=== PATIENT | female | born 1975 | race Caucasian/White ===

== ENCOUNTER 2017-04-07 11:38 | Emergency (ER) | payer OTHER ==
[2017-04-07 11:59] VITALS: BP 130/77
--- NOTE | 2017-04-07 12:23 | EDM.PDOC ---
ED HPI GENERAL MEDICAL PROBLEM - General Chief Complaint: ENT Problem Stated Complaint: LUMP IN THROAT Time Seen by Provider: 04/07/17 12:18 Source of Information: Reports: Patient History Limitations: Reports: No Limitations - History of Present Illness INITIAL COMMENTS - FREE TEXT/NARRATIVE: 42-year-old female presents to the ED quite anxious. She has a lump in the left side of her throat in the distribution of the left thyroid gland that is grown dramatically over the last 3 weeks. Apparently it's been identified on ultrasound to be a large follicular cyst. Unfortunately all the results are across the street at [facility]. She states this morning the pressure from the lesion was making it difficult to breathe. She is quite anxious in this regard. I will try and find out more information from the clinic across the street as to the etiology. She indicates she has an appointment to see Dr. Gloria the surgeon at [facility] to have the lesion removed or drained tomorrow. Apparently investigations done on her thyroid glands reveal that she is euthyroid. 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 below) (This will cause a tickle in her throat to make her have a nonproductive cough intermittently.) Throat Pain Score (Numeric/FACES): 7 - Related Data Allergies Allergy/AdvReac Type Severity Reaction Status Date / Time Latex, Natural Rubber Allergy Rash Verified 10/01/16 14:35 Penicillins Allergy Cannot Verified 10/01/16 14:35 Remember Home Meds: Home Meds ALPRAZolam [Alprazolam ER] 0.5 mg PO Q8H PRN #5 tab.er.24h 04/07/17 [Rx] Past Medical History HEENT History: Reports: Impaired Vision Other HEENT History: glasses 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: 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 History: Reports: Other (See Below) Other 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 History: left leg reconstructive surgery Neurological History: Reports: Migraines Hematologic History: Reports: Blood Transfusion(s) - Past Surgical History Female Surgical History: Reports: Section Social & Family History - Family History Family Medical History: Noncontributory - Tobacco Use Smoking Status *Q: Never Smoker Years of Tobacco use: 15 Packs/Tins Daily: 0.7 Second Hand Smoke Exposure: No - Caffeine Use Caffeine Use: Reports: Coffee, Energy Drinks, Soda, Tea - Recreational Drug Use Recreational Drug Use: No - Living Situation & Occupation Living situation: Reports: Occupation: Employed ED ROS ENT - Review of Systems Review Of Systems: See Below Constitutional: Denies: Fever, Chills, Malaise, Weakness, Fatigue, Decreased Appetite, Weight Loss HEENT: Reports: Throat Pain, Throat Swelling (Pressure and swelling in the left side of her throat that makes it difficult to breathe when she's lying down and standing. Effexor feel very anxious.) Respiratory: Reports: Shortness of Breath Cardiovascular: Reports: No Symptoms Endocrine: Reports: No Symptoms GI/Abdominal: Reports: No Symptoms : Reports: No Symptoms 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: Reports: No Symptoms Skin: Reports: No Symptoms Neurological: Reports: No Symptoms Psychiatric: Reports: No Symptoms Hematologic/Lymphatic: Reports: No Symptoms Immunologic: Reports: No Symptoms ED EXAM, ENT - Physical Exam Exam: See Below Exam Limited By: No Limitations General Appearance: Alert, WD/WN, Anxious, Moderate Distress, Other (Has an obvious lump when she swallows in the left side of her neck in the distribution of the left hemithyroid.) Eye Exam: Bilateral Eye: Normal Inspection (No proptosis) Head: Atraumatic, Normocephalic Neck: Thyromegaly (There is an enlargement size of a golf ball in the left hemithyroid that is almost substernal until she swallows. It is firm to palpation and mildly tender.). No: Lymphadenopathy (L), Lymphadenopathy (R) Respiratory/Chest: No Respiratory Distress, Lungs Clear, Normal Breath Sounds, No Accessory Muscle Use Cardiovascular: Normal Peripheral Pulses, Regular Rate, Rhythm, No Edema, No Gallop, No Murmur, No Rub GI/Abdominal: Normal Bowel Sounds, Soft, Non-Tender, No Organomegaly Course - Vital Signs Last Recorded V/S: Last Vital Signs Temp 36.6 C 04/07/17 11:54 Pulse 70 04/07/17 11:54 Resp 16 04/07/17 11:54 BP 130/77 04/07/17 11:54 Pulse Ox 98 04/07/17 11:54 - Orders/Labs/Meds Meds: Medications Discontinued Medications Generic Name Dose Route Start Last Admin Trade Name Ricardo PRN Reason Stop Dose Admin Alprazolam 0.5 mg 04/07/17 14:33 04/07/17 14:52 Xanax PO 04/07/17 14:34 0.5 mg NOW ONE Administration Furosemide 40 mg 04/07/17 14:26 04/07/17 14:50 Lasix PO 04/07/17 14:27 40 mg ONETIME ONE Administration Ibuprofen 600 mg 04/07/17 14:29 04/07/17 14:51 Motrin PO 04/07/17 14:30 600 mg ONETIME ONE Administration - Radiology Interpretation Free Text/Narrative:: 42-year-old female presents the ED with a left sided neck mass that she's had gradually enlarging over the last 3-4 weeks. Examination reveals just by observation that she has a golf ball swelling in the left hemithyroid. Bili is been identified by ultrasound to be a large colloid or follicular cyst. Digital with Dr. Gloria tomorrow in [place] to have it surgically removed or drained. She was quite apprehensive today because it's pressing on her voice box making it difficult to breathe and making her apprehensive and anxious. I will try and get the results from [facility] as to the etiology of the lesion on ultrasound. She indicates that testing revealed that she is euthyroid. - Re-Assessments/Exams Free Text/Narrative Re-Assessment/Exam: 04/07/17 14:30: There was not much else I could offer the patient. It she is feeling quite anxious and worried that it is going to compress her optic is an airway. I placed her on alprazolam 0.5 mg every 8 hours when necessary until she can have definitive drainage tomorrow or surgical excision. Her appointment is with Dr. Ramirez tomorrow afternoon at 3:15 central time. Departure - Departure Time of Disposition: 14:33 Disposition: Home, Self-Care 01 Condition: Fair Clinical Impression: Benign thyroid cyst - Discharge Information Prescriptions: ALPRAZolam [Alprazolam ER] 0.5 mg PO Q8H PRN #5 tab.er.24h PRN Reason: Throat pressure Instructions: Thyroid Nodule Referrals: PCP,None [Primary Care Provider] - Forms: ED Department Discharge Additional Instructions: Evaluation in the emergency room today in regards to throat pressure being exerted on the airway and the food pipe from a very large thyroid cyst. Ultrasound reports a large colloid cyst on the left side that is progressed quite substantially in size over the last 3-4 weeks. You're scheduled for surgical management tomorrow and I suspect it will be drained percutaneously which means a needle be stuck into it and drain it off. I've given her Lasix 40 mg orally in the hopes of reducing some of the size of the swelling in the short interim. May use alprazolam 0.5 mg every 8 hours as needed to relieve some of the pressure in the throat as well. Unfortunately nothing really is going to take it away completely until it is drained or surgically removed. Travel to [place] tomorrow as planned.
[2017-04-07] MEDS ORDERED: Furosemide 40 MG Tab PO ONE (14:26)
[2017-04-07] MEDS ORDERED: Ibuprofen 600 MG Tab PO ONE (14:29)
[2017-04-07] MEDS ORDERED: ALPRAZolam 0.5 MG Tab PO ONE (14:33)
== END 2017-04-07 14:55 | disposition home or self-care (01) ==
LOC: JD.ED 11:38
DX: E04.1 Nontoxic single thyroid nodule (principal); Z88.0 Allergy status to penicillin; Z91.040 Latex allergy status
CPT/HCPCS: 99283; A9270

== ENCOUNTER 2017-04-11 11:57 | Emergency (ER) | payer OTHER ==
[2017-04-11 12:10] VITALS: BP 132/82
[2017-04-11] MEDS ORDERED: LORazepam 2 MG/ML MDV IVPUSH ONE (13:01)
[2017-04-11] MEDS ORDERED: Sodium Chloride 0.9% 10 ML Syringe FLUSH PRN ×2 (13:02→13:24)
[2017-04-11] MEDS ORDERED: Iopamidol 612 MG/ML 100 ML Bottle IVPUSH ONE (13:24)
--- NOTE | 2017-04-11 15:33 | EDM.PDOC ---
ED HPI GENERAL MEDICAL PROBLEM - General Chief Complaint: ENT Problem Stated Complaint: THROAT PAIN Time Seen by Provider: 04/11/17 12:50 Source of Information: Reports: Patient, Old Records (recent ER visit) History Limitations: Reports: No Limitations - History of Present Illness INITIAL COMMENTS - FREE TEXT/NARRATIVE: 42 year old female presents for evaluation and treatment of a neck mass and painful neck. Patient was seen in the ER on 04-07-17 for the same complaint. She was schedule to have a thyroid cyst drained in [place] the following day. She was reassured and prescribed some xanax. Patient had the cyst drained with Dr. Moreno in [place] on 04-08-17. She reports immediate relief of her symptoms. She reports yesterday her symptoms returned. Current symptoms include: neck pain , throat pain, dysphagia, odynophargia, difficulty breathing and horseness of voice. Patient reports yesterday she developed redness to her neck and swelling to her face. These symptoms have since resolved. Patient reports she has felt warm but has not taken her temp. Denies any nausea or vomiting. Reports feeling lightheaded. Left Throat Pain Score (Numeric/FACES): 6 - Related Data Allergies Allergy/AdvReac Type Severity Reaction Status Date / Time Latex, Natural Rubber Allergy Rash Verified 04/11/17 12:10 Penicillins Allergy Cannot Verified 04/11/17 12:10 Remember Home Meds: Home Meds . 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 History: Reports: Other (See Below) Other 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 History: left leg reconstructive surgery Neurological History: Reports: Migraines Hematologic History: Reports: Blood Transfusion(s) - Past Surgical History Female Surgical History: Reports: Section Social & Family History - Family History Family Medical History: Noncontributory - Tobacco Use Smoking Status *Q: Current Every Day Smoker Years of Tobacco use: 25 Packs/Tins Daily: 0.5 Second Hand Smoke Exposure: No - Caffeine Use Caffeine Use: Reports: None - Recreational Drug Use Recreational Drug Use: No - Living Situation & Occupation Living situation: Reports: Occupation: Employed ED ROS ENT - Review of Systems Review Of Systems: See Below Constitutional: Denies: Fever (reports feeling warm) HEENT: Reports: Other (facial swelling) Respiratory: Reports: Shortness of Breath Cardiovascular: Reports: Lightheadedness GI/Abdominal: Denies: Nausea, Vomiting 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: Reports: Neck Pain (reports dysphagia, reports odynophagia, reports a lump to the left thyroid where the previous cyst had been, reports a horse voice) Skin: Reports: Erythema (to the nect ) ED EXAM, ENT - Physical Exam Exam: See Below Exam Limited By: No Limitations General Appearance: Alert, WD/WN, No Apparent Distress, Anxious Ears: Normal External Exam Nose: Normal Inspection Mouth/Throat: Normal Inspection, Normal Gums, Normal Lips, Normal Oropharynx, Normal Teeth Head: Atraumatic, Normocephalic Neck: Normal Inspection, Supple, Other (pea sized lump to the left thyroid patient reports with palpation of the lump she can not breath) Respiratory/Chest: No Respiratory Distress, Lungs Clear, Normal Breath Sounds Cardiovascular: Normal Peripheral Pulses, Regular Rate, Rhythm Neurological: Alert, Oriented Psychiatric: Anxious Skin: Warm, Dry, Normal Color. No: Erythema, Increased Warmth Course - Vital Signs Last Recorded V/S: Last Vital Signs Temp 36.4 C 04/11/17 12:05 Pulse 71 04/11/17 12:05 Resp 13 04/11/17 12:05 BP 132/82 04/11/17 12:05 Pulse Ox 100 04/11/17 12:05 - Orders/Labs/Meds Labs: Laboratory Tests 04/11/17 04/11/17 Range/Units 13:18 13:18 WBC 8.67 (3.98-10.04) K/mm3 RBC 4.45 (3.98-5.22) M/mm3 Hgb 13.9 (11.2-15.7) gm/L Hct 41.7 (34.1-44.9) % MCV 93.7 (79.4-94.8) fl MCH 31.2 (25.6-32.2) pg MCHC 33.3 (32.2-35.5) g/dl RDW Std Deviation 42.1 (36.4-46.3) fL Plt Count 263 (182-369) K/mm3 MPV 9.9 (9.4-12.3) fl Neutrophils % (Manual) 66 H (40-60) % Band Neutrophils % 0 (0-10) % Lymphocytes % (Manual) 32 (20-40) % Atypical Lymphs % 0 % Monocytes % (Manual) 2 (2-10) % Eosinophils % (Manual) 0 L (0.7-5.8) % Basophils % (Manual) 0 L (0.1-1.2) Platelet Estimate Adequate RBC Morph Comment Normal Sodium 140 (136-145) mEq/L Potassium 3.7 (3.5-5.1) mEq/L Chloride 104 (98-107) mEq/L Carbon Dioxide 27 (21-32) mEq/L Anion Gap 12.7 (5-15) BUN 10 (7-18) mg/dL Creatinine 0.9 (0.55-1.02) mg/dL Est Cr Clr Drug Dosing TNP Estimated GFR (MDRD) > 60 (>60) mL/min BUN/Creatinine Ratio 11.1 L (14-18) Glucose 98 (74-106) mg/dL Calcium 9.3 (8.5-10.1) mg/dL Total Bilirubin 0.5 (0.2-1.0) mg/dL AST 18 (15-37) U/L ALT 18 (14-59) U/L Alkaline Phosphatase 70 (46-116) U/L C-Reactive Protein 0.9 (<1.0) mg/dL Total Protein 8.0 (6.4-8.2) g/dl Albumin 4.2 (3.4-5.0) g/dl Globulin 3.8 gm/dL Albumin/Globulin Ratio 1.1 (1-2) Meds: Medications Discontinued Medications Generic Name Dose Route Start Last Admin Trade Name Freq PRN Reason Stop Dose Admin Iopamidol 80 ml 04/11/17 13:24 04/11/17 13:49 Isovue-300 (61%) IVPUSH 04/11/17 13:25 80 ml ONETIME ONE Administration Lorazepam 1 mg 04/11/17 13:01 04/11/17 13:20 Ativan IVPUSH 04/11/17 13:02 1 mg ONETIME ONE Administration Sodium Chloride 10 ml 04/11/17 13:02 04/11/17 13:23 Saline Flush FLUSH 10 ml ASDIRECTED PRN Administration Keep Vein Open Sodium Chloride 10 ml 04/11/17 13:24 04/11/17 13:49 Saline Flush FLUSH 10 ml ONETIME PRN Administration IV FLUSH - Radiology Interpretation Free Text/Narrative:: CT of the neck with IV contrast impression per vrad: Resolution of the previously noted large left thyroid cyst. 1.9 x 1.4 cm hypodense nodular focus in the inferior left thyroid lobe which probably represents a remnant of the former cyst. Otherwise unremarkable soft tissue neck CT. No impingement upon the airway or esophagus. - Re-Assessments/Exams Free Text/Narrative Re-Assessment/Exam: 04/11/17 15:25 The patient reports she is extremely claustrophobic and did not think she would be able to get a CT. Given her symptoms, this is the imaging study we need to rule out a mass. I also do not think she could tolerate an ultrasound as she could barely tolerate light palpation of the cyst. 1 mg IV ativan was ordered. Labs returned wbc 8.67 with no bands, hgb is 13.9 and plts are 263 crp is within normal limits at 0.9 sodium is 140, potassium is 3.7 and chloride is 104. anion gap is 12.7. gluclose is 98 I discussed the case with Dr. Harris. He did not feel any further intervention was needed at this point based on a negative CT and unremarkable physical exam. I discussed the labs and cT with the patient. She reports no improvement of her symptoms with the ativan. She is upset with the news that her labs and CT are normal. Despite reporting not being able to breath or swallow she is swallowing her secretions and her vitals have remained normal throughout her stay. I encouraged her to contact her surgeon on Thursday to review her symptoms. At this point there is no abscess or reemergence of the cyst to indicate admission or transfer. Discharge instructions as documented. Departure - Departure Time of Disposition: 15:29 Disposition: Home, Self-Care 01 Condition: Good Clinical Impression: Benign thyroid cyst, History of thyroid cyst - Discharge Information Referrals: PCP,None [Primary Care Provider] - Carin Gloria MD [Ordering Only Provider] - Forms: ED Department Discharge Additional Instructions: Follow-up with your surgeon on Thursday. I recommend you call them for your test results and let them know that your of your symptoms. May take [id number] Tylenol or Motrin as needed for pain. Please return to the ER if your symptoms change or worsen.
--- NOTE | 2017-04-12 15:10 | CT ---
CT neck Technique: Multiple axial sections were obtained from above the external auditory canals inferiorly to the lung apices. Intravenous contrast was utilized. Findings: Visualized lung apices are clear. Small low density lesion is seen within the left lobe of the thyroid gland believed to be incidental. Parotid and submandibular salivary glands are felt to be within normal limits. Paranasal sinuses are clear. No adenopathy is seen within the neck. No other neck mass is identified. Parapharyngeal soft tissues appear symmetric between right and left sides. Epiglottis is within normal limits. Prevertebral soft tissues are normal. Very slight degenerative change is seen within the cervical spine. Impression: 1. Findings which are felt to be incidental as described above. Nothing acute is identified on CT study of the neck. Diagnostic code #2 I agree with preliminary report issued by [email or web address] ([facility] report finalized on 04/11/17, 4:02 PM Central Time)
== END 2017-04-11 15:40 | disposition home or self-care (01) ==
LOC: JD.ED 11:57
DX: E04.1 Nontoxic single thyroid nodule (principal); F17.210 Nicotine dependence, cigarettes, uncomplicated; Z88.0 Allergy status to penicillin; Z91.040 Latex allergy status
CPT/HCPCS: 36415; 70491; 80053; 85025; 86140; 96374; 99284; J2060; J7050; Q9967; 99283

== ENCOUNTER 2017-06-04 13:55 | Emergency (ER) | payer OTHER ==
[2017-06-04] MEDS ORDERED: diphenhydrAMINE 50 MG/ML SDV IM ONE (15:02)
[2017-06-04] MEDS ORDERED: Ketorolac 60 MG/2 ML SDV IM ONE (15:02)
[2017-06-04] MEDS ORDERED: Metoclopramide 10 MG/2 ML SDV IM ONE (15:02)
--- NOTE | 2017-06-04 15:03 | EDM.PDOC ---
ED HPI GENERAL MEDICAL PROBLEM - General Chief Complaint: Headache Stated Complaint: Headache Time Seen by Provider: 06/04/17 14:30 Source of Information: Reports: Patient, RN Notes Reviewed History Limitations: Reports: No Limitations - History of Present Illness INITIAL COMMENTS - FREE TEXT/NARRATIVE: 42 year old female presents with headache. Patient has longstanding history of headaches, but they have been increasing in severity and frequency since thyroidectomy 04/21/17. This headache began yesterday afternoon, with light/ noise sensitivity, nausea, vomiting x 2. Pain is in frontal region rated 10/10 on pain scale. She reports intermittent ringing of ears and blurred vision. Ibuprofen and topical cold/heat do not provide relief from symptoms. Lying still and manual pressure to bridge of nose provide minimal symptom improvement. Thyroid levels were checked on 05/21/[address] Gloria's office and levothyroxine dose was increased from 112mcg to 150mcg at that time. The patient feels that her thyroid medication is causing her headaches. 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; Dramamine Headache Pain Score (Numeric/FACES): 10 - Related Data Allergies Allergy/AdvReac Type Severity Reaction Status Date / Time hydromorphone [From Dilaudid] Allergy Vomiting Verified 06/04/17 14:17 Latex, Natural Rubber Allergy Rash Verified 04/11/17 12:10 Penicillins Allergy Cannot Verified 04/11/17 12:10 Remember Home Meds: Home Meds Acetaminophen/Butalbital/Caff [Fioricet 325-50-40 MG] 1 tab PO TID PRN #15 tablet 06/04/17 [Rx] Levothyroxine 150 mcg PO ACBREAKFAST 06/04/17 [History] Past Medical History HEENT History: Reports: Impaired Vision Other 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: 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 History: Reports: Other (See Below) Other 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 History: left leg reconstructive surgery Neurological History: Reports: Migraines Hematologic History: Reports: Blood Transfusion(s) - Past Surgical History Female Surgical History: Reports: Section Social & Family History - Family History Family Medical History: Noncontributory - Tobacco Use Smoking Status *Q: Current Every Day Smoker Years of Tobacco use: 25 Packs/Tins Daily: 0.5 Second Hand Smoke Exposure: No - Caffeine Use Caffeine Use: Reports: None - Recreational Drug Use Recreational Drug Use: No - Living Situation & Occupation Living situation: Reports: Occupation: Employed ED ROS GENERAL - Review of Systems Review Of Systems: See Below Constitutional: Reports: Night Sweats. Denies: Fever, Chills Respiratory: Reports: No Symptoms. Denies: Hemoptysis Cardiovascular: Reports: No Symptoms. Denies: Chest Pain GI/Abdominal: Reports: Nausea, Vomiting. Denies: Abdominal Pain, Constipation, Diarrhea Neurological: Reports: Headache. Denies: Confusion, Numbness, Tingling, Trouble Speaking, Difficulty Walking - Physical Exam Exam: See Below Exam Limited By: No Limitations General Appearance: Alert, WD/WN, Moderate Distress Eye Exam: Bilateral Eye: EOMI, PERRL Head Exam: Atraumatic, Normocephalic Respiratory/Chest: No Respiratory Distress, Lungs Clear, Normal Breath Sounds Cardiovascular: Regular Rate, Rhythm Neuro Exam (Abbreviated): Alert, Oriented, Normal Cognition, Normal Gait, No Motor/Sensory Deficits, Other (cerebellar testing intact) Skin Exam: Warm, Dry, Intact Course - Vital Signs Last Recorded V/S: Last Vital Signs Temp 97.7 F 06/04/17 14:17 Pulse 82 06/04/17 14:17 Resp 18 06/04/17 14:17 BP 130/105 H 06/04/17 14:17 Pulse Ox 99 06/04/17 14:17 - Orders/Labs/Meds Orders: Active Orders 24 hr Category Date Time Status Peripheral IV Care [RC] . DIRECTED Care 06/04/17 16:38 Active Sodium Chloride 0.9% [Saline Flush] Med 06/04/17 16:38 Active 10 ml FLUSH ASDIRECTED PRN Peripheral IV Insertion Adult [OM.PC] Stat Oth 06/04/17 16:38 Ordered Medication Orders Sodium Chloride (Saline Flush) 10 ml FLUSH ASDIRECTED PRN PRN Reason: Keep Vein Open Last Admin: 06/04/17 16:45 Dose: 10 ml Meds: Medications Generic Name Dose Route Start Last Admin Trade Name Freq PRN Reason Stop Dose Admin Sodium Chloride 10 ml 06/04/17 16:38 06/04/17 16:45 Saline Flush FLUSH 10 ml ASDIRECTED PRN Administration Keep Vein Open Discontinued Medications Generic Name Dose Route Start Last Admin Trade Name Freq PRN Reason Stop Dose Admin Diphenhydramine HCl 50 mg 06/04/17 15:02 06/04/17 15:19 Benadryl IM 06/04/17 15:03 50 mg ONETIME ONE Administration Fentanyl 50 mcg 06/04/17 16:38 06/04/17 16:51 Sublimaze IVPUSH 06/04/17 16:39 50 mcg ONETIME ONE Administration Fentanyl 50 mcg 06/04/17 17:46 Sublimaze IVPUSH 06/04/17 17:47 ONETIME ONE Sodium Chloride 1,000 mls @ 999 mls/hr 06/04/17 16:38 06/04/17 16:50 Normal Saline IV 06/04/17 17:38 999 mls/hr ONETIME ONE Administration Ketorolac Tromethamine 60 mg 06/04/17 15:02 06/04/17 15:18 Toradol IM 06/04/17 15:03 60 mg ONETIME ONE Administration Metoclopramide HCl 5 mg 06/04/17 15:02 06/04/17 15:18 Reglan IM 06/04/17 15:03 5 mg ONETIME ONE Administration - Re-Assessments/Exams Free Text/Narrative Re-Assessment/Exam: Initial treatment included Toradol 60mg, Benadryl 50mg, Reglan 5mg IM. Her pain improved from a 10/10 to 8/10. Her headaches seem to be associated to changes in her thyroid medication. Discussed with Dr. Castro. IV was placed. She was given a 1 liter NS bolus and Fentanyl. She had significant improvement in pain. 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 She was also encouraged to establish with a PCP in our clinic. Small Rx provided for Fioricet. Educated on return precautions. Discharge instructions as documented. Departure - Departure Time of Disposition: 17:46 Disposition: Home, Self-Care 01 Condition: Good Clinical Impression: Migraine - Discharge Information Prescriptions: Acetaminophen/Butalbital/Caff [Fioricet 325-50-40 MG] 1 tab PO TID PRN #15 tablet PRN Reason: Headache Referrals: PCP,Not In Area [Primary Care Provider] - Forms: ED Department Discharge Additional Instructions: Continue over the counter pain relieves as needed. Recommend Ibuprofen or Aleve. Fioricet 1 tab up to 3 times a day as needed for headache Fioricet has 325mg of Tylenol per tab. 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 Call [phone] to schedule with one of our providers Return to ER with new or worsening symptoms. - My Orders Last 24 Hours: My Active Orders 06/04/17 16:38 Peripheral IV Care [RC] . DIRECTED Sodium Chloride 0.9% [Saline Flush] 10 ml FLUSH ASDIRECTED PRN Peripheral IV Insertion Adult [OM.PC] Stat - Assessment/Plan Last 24 Hours: My Active Orders 06/04/17 16:38 Peripheral IV Care [RC] . DIRECTED Sodium Chloride 0.9% [Saline Flush] 10 ml FLUSH ASDIRECTED PRN Peripheral IV Insertion Adult [OM.PC] Stat
[2017-06-04] MEDS ORDERED: Sodium Chloride 0.9% 1,000 ML IV ONE (16:38)
[2017-06-04] MEDS ORDERED: Sodium Chloride 0.9% 10 ML Syringe FLUSH PRN (16:38)
[2017-06-04] MEDS ORDERED: fentaNYL 100 MCG/2 ML SDV IVPUSH ONE ×2 (16:38→17:46)
[2017-06-04 18:06] VITALS: BP 144/79
== END 2017-06-04 18:04 | disposition home or self-care (01) ==
LOC: JD.ED 13:55
DX: G43.909 Migraine, unspecified, not intractable, without status migrainosus (principal); F17.210 Nicotine dependence, cigarettes, uncomplicated; Z88.5 Allergy status to narcotic agent; Z91.040 Latex allergy status; Z88.0 Allergy status to penicillin
CPT/HCPCS: 96361; 96372; 96374; 96376; 99283; J1200; J1885; J2765; J3010; J7040; J7050; 99285

== ENCOUNTER 2017-06-09 16:47 | Emergency (ER) | payer OTHER ==
[2017-06-09 16:58] VITALS: BP 152/90
[2017-06-09] MEDS ORDERED: Sodium Chloride 0.9% 10 ML Syringe FLUSH PRN (17:10)
[2017-06-09] MEDS ORDERED: diphenhydrAMINE 50 MG/ML SDV IVPUSH ONE (17:11)
[2017-06-09] MEDS ORDERED: Prochlorperazine 10 MG/2 ML SDV IVPUSH ONE (17:11)
[2017-06-09] MEDS ORDERED: Ketorolac 30 MG/ML SDV IVPUSH ONE (17:11)
[2017-06-09] MEDS ORDERED: Dextrose 5%-0.45% NaCl 1,000 ML IV SCH (17:15)
--- NOTE | 2017-06-09 17:19 | EDM.PDOC ---
ED HPI GENERAL MEDICAL PROBLEM - General Chief Complaint: Headache Stated Complaint: HEADACHE Time Seen by Provider: 06/09/17 16:56 Source of Information: Reports: Patient History Limitations: Reports: No Limitations - History of Present Illness INITIAL COMMENTS - FREE TEXT/NARRATIVE: The patient presents with a severe headache. She has a history of headaches but this is much worse. She recently had her thyroid removed by Dr Gloria at [facility] in [place]. She is now on synthroid. They increased her dose a few days ago. She has pain behind both eyes. She has nausea but no vomiting. She has chills and night sweats. She denies numbness or weakness. She has some blurred vision with it. She has no cough, congestion, runny nose, or abdominal pain. She was seen night here and the pain was better but still there. Today after she woke up it was much worse. Onset: Gradual Duration: Day(s): Location: Reports: Head Quality: Reports: Sharp Severity: Severe Improves with: Reports: None Worsens with: Reports: None Associated Symptoms: Reports: Fever/Chills, Headaches, Nausea/Vomiting. Denies : Confusion, Chest Pain, Cough, Shortness of Breath Headache Pain Score (Numeric/FACES): 10 - Related Data Allergies Allergy/AdvReac Type Severity Reaction Status Date / Time hydromorphone [From Dilaudid] Allergy Vomiting Verified 06/09/17 16:58 Latex, Natural Rubber Allergy Rash Verified 06/09/17 16:58 Penicillins Allergy Cannot Verified 06/09/17 16:58 Remember Home Meds: Home Meds Acetaminophen/Butalbital/Caff [Fioricet 325-50-40 MG] 1 tab PO TID PRN #15 tablet 06/04/17 [Rx] Levothyroxine 150 mcg PO ACBREAKFAST 06/04/17 [History] Metoclopramide HCl [Reglan] 10 mg PO Q6HR PRN #30 tablet 06/09/17 [Rx] oxyCODONE HCl/Acetaminophen [Percocet 5-325 mg Tablet] 1 - 2 each PO Q6HR PRN # 20 tablet 06/09/17 [Rx] Past Medical History HEENT History: Reports: Impaired Vision Other HEENT History: glasses Genitourinary History: Reports: None TOURIST ADVISER History: Reports: 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 History: Reports: Other (See Below) Other 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 History: left leg reconstructive surgery Neurological History: Reports: Migraines Endocrine/Metabolic History: Reports: Other (See Below) Other Endocrine/Metabolic History: 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 problems Hematologic History: Reports: Blood Transfusion(s) - Past Surgical History Female Surgical History: Reports: Section Endocrine Surgical History: Reports: Thyroidectomy Social & Family History - Family History Family Medical History: Noncontributory - Tobacco Use Smoking Status *Q: Current Every Day Smoker Years of Tobacco use: 23 Packs/Tins Daily: 0.5 Second Hand Smoke Exposure: No - Caffeine Use Caffeine Use: Reports: Coffee, Soda - Recreational Drug Use Recreational Drug Use: No - Living Situation & Occupation Living situation: Reports: Occupation: Employed ED ROS GENERAL - Review of Systems Review Of Systems: See Below Constitutional: Reports: Chills. Denies: Fever HEENT: Reports: No Symptoms Respiratory: Reports: No Symptoms Cardiovascular: Reports: No Symptoms Endocrine: Reports: No Symptoms GI/Abdominal: Reports: Nausea. Denies: Abdominal Pain, Vomiting : Reports: No Symptoms 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: Reports: No Symptoms Skin: Reports: No Symptoms Neurological: Reports: No Symptoms - Physical Exam Exam: See Below Exam Limited By: No Limitations General Appearance: Alert, No Apparent Distress Ears: Normal External Exam, Normal Canal, Normal TMs Nose: Normal Inspection Head Exam: Atraumatic, Normocephalic Neck: Normal Inspection, Supple, Non-Tender Respiratory/Chest: No Respiratory Distress, Lungs Clear, Normal Breath Sounds Cardiovascular: Regular Rate, Rhythm, No Edema, No Murmur GI/Abdominal: Soft, Non-Tender, No Organomegaly, No Mass Neuro Exam (Abbreviated): Alert, Oriented, No Motor/Sensory Deficits Course - Vital Signs Last Recorded V/S: Last Vital Signs Temp 97.8 F 06/09/17 16:55 Pulse 72 06/09/17 16:55 Resp 16 06/09/17 16:55 BP 152/90 H 06/09/17 16:55 Pulse Ox 98 06/09/17 16:55 - Orders/Labs/Meds Orders: Active Orders 24 hr Category Date Time Status Peripheral IV Care [RC] . DIRECTED Care 06/09/17 17:10 Active SEDIMENTATION RATE AUTO [HEME] Stat Lab 06/09/17 17:13 Ordered Dextrose 5%-0.45% NaCl [Dextrose 5%-1/2 NS] 1,000 ml Med 06/09/17 17:15 Active IV ASDIRECTED Sodium Chloride 0.9% [Saline Flush] Med 06/09/17 17:10 Active 10 ml FLUSH ASDIRECTED PRN ED Antiemetic Medication Reflex [OM.PC] Stat Oth 06/09/17 17:11 Ordered Peripheral IV Insertion Adult [OM.PC] Stat Ot 06/09/17 17:10 Ordered Medication Orders Dextrose/Sodium Chloride (Dextrose 5%-1/2 Ns) 1,000 mls @ 500 mls/hr IV ASDIRECTED GLORIA Last Admin: 06/09/17 17:29 Dose: 500 mls/hr Sodium Chloride (Saline Flush) 10 ml FLUSH ASDIRECTED PRN PRN Reason: Keep Vein Open Last Admin: 06/09/17 17:28 Dose: 10 ml Labs: Laboratory Tests 06/09/17 06/09/17 06/09/17 Range/Units 17:23 17:23 17:23 WBC 8.71 (3.98-10.04) K/mm3 RBC 4.18 (3.98-5.22) M/mm3 Hgb 12.5 (11.2-15.7) gm/L Hct 39.0 (34.1-44.9) % MCV 93.3 (79.4-94.8) fl MCH 29.9 (25.6-32.2) pg MCHC 32.1 L (32.2-35.5) g/dl RDW Std Deviation 42.0 (36.4-46.3) fL Plt Count 232 (182-369) K/mm3 MPV 10.1 (9.4-12.3) fl Neut % (Auto) 53.6 (34.0-71.1) % Lymph % (Auto) 36.1 (19.3-51.7) % Crawford % (Auto) 7.9 (4.7-12.5) % Eos % (Auto) 1.6 (0.7-5.8) Baso % (Auto) 0.7 (0.1-1.2) % Neut # (Auto) 4.67 (1.56-6.13) K/mm3 Lymph # (Auto) 3.14 (1.18-3.74) K/mm3 Crawford # (Auto) 0.69 H (0.24-0.36) K/mm3 Eos # (Auto) 0.14 (0.04-0.36) K/mm3 Baso # (Auto) 0.06 (0.01-0.08) K/mm3 Sodium 143 (136-145) mEq/L Potassium 3.4 L (3.5-5.1) mEq/L Chloride 106 (98-107) mEq/L Carbon Dioxide 27 (21-32) mEq/L Anion Gap 13.4 (5-15) BUN 9 (7-18) mg/dL Creatinine 0.8 (0.55-1.02) mg/dL Est Cr Clr Drug Dosing TNP Estimated GFR (MDRD) > 60 (>60) mL/min BUN/Creatinine Ratio 11.3 L (14-18) Glucose 104 (74-106) mg/dL Calcium 8.9 (8.5-10.1) mg/dL Total Bilirubin 0.2 (0.2-1.0) mg/dL AST 14 L (15-37) U/L ALT 15 (14-59) U/L Alkaline Phosphatase 63 (46-116) U/L C-Reactive Protein < 0.2 (<1.0) mg/dL Total Protein 6.9 (6.4-8.2) g/dl Albumin 3.8 (3.4-5.0) g/dl Globulin 3.1 gm/dL Albumin/Globulin Ratio 1.2 (1-2) TSH 3rd Generation 1.797 (0.358-3.74) uIU/mL HCG, Qual Negative (NEGATIVE) Meds: Medications Generic Name Dose Route Start Last Admin Trade Name Freq PRN Reason Stop Dose Admin Dextrose/Sodium Chloride 1,000 mls @ 500 mls/hr 06/09/17 17:15 06/09/17 17:29 Dextrose 5%-1/2 Ns IV 500 mls/hr ASDIRECTED GLORIA Administration Sodium Chloride 10 ml 06/09/17 17:10 06/09/17 17:28 Saline Flush FLUSH 10 ml ASDIRECTED PRN Administration Keep Vein Open Discontinued Medications Generic Name Dose Route Start Last Admin Trade Name Freq PRN Reason Stop Dose Admin Diphenhydramine HCl 50 mg 06/09/17 17:11 06/09/17 17:26 Benadryl IVPUSH 06/09/17 17:12 50 mg ONETIME ONE Administration Ketorolac Tromethamine 30 mg 06/09/17 17:11 06/09/17 17:28 Toradol IVPUSH 06/09/17 17:12 30 mg ONETIME ONE Administration Prochlorperazine Edisylate 10 mg 06/09/17 17:11 06/09/17 17:22 Compazine IVPUSH 06/09/17 17:12 10 mg ONETIME ONE Administration - Re-Assessments/Exams Free Text/Narrative Re-Assessment/Exam: 06/09/17 17:20 I ordered an IV D5 1/2 NS at 500mL/hr, compazine 10mg IV, toradol 30mg IV, benadryl 50mg IV, CT of her head, and labs. 06/09/17 18:[address] of her head looks good. Her CBC and CMP look good. Her HCG is negative. Her TSH is in a normal range. Departure - Departure Time of Disposition: 18:50 Disposition: Home, Self-Care 01 Condition: Good Clinical Impression: Migraine - Discharge Information Prescriptions: Metoclopramide HCl [Reglan] 10 mg PO Q6HR PRN #30 tablet PRN Reason: Nausea oxyCODONE HCl/Acetaminophen [Percocet 5-325 mg Tablet] 1 - 2 each PO Q6HR PRN # 20 tablet PRN Reason: Pain Referrals: Meg Freed, LAW ENFORCEMENT OFFICER [Primary Care Provider] - 3 Days Forms: ED Department Discharge Additional Instructions: Take the percocet and reglan as needed for pain. Follow up with Meg Freed in the next 3 days. Please return if you are not better. - My Orders Last 24 Hours: My Active Orders 06/09/17 17:10 Peripheral IV Care [RC] . DIRECTED Sodium Chloride 0.9% [Saline Flush] 10 ml FLUSH ASDIRECTED PRN Peripheral IV Insertion Adult [OM.PC] Stat 06/09/17 17:11 ED Antiemetic Medication Reflex [OM.PC] Stat 06/09/17 17:13 SEDIMENTATION RATE AUTO [HEME] Stat 06/09/17 17:15 Dextrose 5%-0.45% NaCl [Dextrose 5%-1/2 NS] 1,000 ml IV ASDIRECTED - Assessment/Plan Last 24 Hours: My Active Orders 06/09/17 17:10 Peripheral IV Care [RC] . DIRECTED Sodium Chloride 0.9% [Saline Flush] 10 ml FLUSH ASDIRECTED PRN Peripheral IV Insertion Adult [OM.PC] Stat 06/09/17 17:11 ED Antiemetic Medication Reflex [OM.PC] Stat 06/09/17 17:13 SEDIMENTATION RATE AUTO [HEME] Stat 06/09/17 17:15 Dextrose 5%-0.45% NaCl [Dextrose 5%-1/2 NS] 1,000 ml IV ASDIRECTED
--- NOTE | 2017-06-09 18:13 | CT ---
Head CT Technique: Multiple axial sections through the brain were obtained. Intravenous contrast was not utilized. Comparison: No previous intracranial imaging is available. Findings: Ventricles along with basal cisterns and sulci over the convexities are within normal limits for the patient's age. No abnormal parenchymal densities are seen. No evidence of intracranial hemorrhage. No midline shift or mass effect is seen. Bone window settings were reviewed which shows no discrete calvarial abnormality. Visualized sinuses are clear. Impression: 1. No abnormality is identified on noncontrast head CT study. Diagnostic code #1
== END 2017-06-09 18:54 | disposition home or self-care (01) ==
LOC: JD.ED 16:47
DX: G43.909 Migraine, unspecified, not intractable, without status migrainosus (principal); F17.210 Nicotine dependence, cigarettes, uncomplicated; E89.0 Postprocedural hypothyroidism; Z88.0 Allergy status to penicillin; Z88.5 Allergy status to narcotic agent; Z91.040 Latex allergy status
CPT/HCPCS: 36415; 70450; 80053; 84443; 84703; 85025; 85652; 86140; 96361; 96374; 96375; 99284; J0780; J1200; J1885; J7042; J7050

== ENCOUNTER 2018-07-05 06:12 | Inpatient (IN) | payer OTHER ==
[2018-07-05] MEDS ORDERED: Ondansetron 4 MG/2 ML SDV IVPUSH ONE (06:50)
[2018-07-05] MEDS ORDERED: Sodium Chloride 0.9% 1,000 ML IV STA (06:50)
[2018-07-05] MEDS ORDERED: Sodium Chloride 0.9% 10 ML Syringe FLUSH PRN (06:50)
[2018-07-05] MEDS ORDERED: fentaNYL 100 MCG/2 ML SDV IVPUSH ONE ×3 (06:52→11:23)
--- NOTE | 2018-07-05 06:58 | EDM.PDOC ---
<NoeinoSergey key - Last Filed: 07/05/18 06:52> ED HPI GENERAL MEDICAL PROBLEM - General Chief Complaint: Abdominal Pain Stated Complaint: POST SURGICAL FEVER AND PAIN Time Seen by Provider: 07/05/18 06:38 Source of Information: Reports: Patient History Limitations: Reports: No Limitations - History of Present Illness INITIAL COMMENTS - FREE TEXT/NARRATIVE: The patient presents with lower abdominal pain, nausea and fever. She had a hysterectomy, salpingooophorectomy at [facility] on June 23. She has 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. She also said they had to remove part of her vagina. She said she was doing good and on her chet were removed and after that her cat jumped on her abdomen. She developed more pain since the. She also has fever, chills and nausea. She has no dysuria but she says when her bladder is full she feels pressure. She has no cough, chest pain or shortness of breath. She has a headache and body aches. Onset: Gradual Duration: Day(s): Location: Reports: Abdomen Quality: Reports: Sharp Severity: Moderate Improves with: Reports: None Worsens with: Reports: None Context: Reports: Other (Surgery on the ) Associated Symptoms: Reports: Fever/Chills, Headaches, Nausea/Vomiting. Denies : Chest Pain, Cough, Shortness of Breath Abdominal Pain Score (Numeric/FACES): 10 - Related Data Allergies Allergy/AdvReac Type Severity Reaction Status Date / Time hydromorphone [From Dilaudid] Allergy Vomiting Verified 06/09/17 16:58 Latex, Natural Rubber Allergy Rash Verified 06/09/17 16:58 Penicillins Allergy Cannot Verified 07/05/18 06:22 Remember Home Meds: Home Meds Levothyroxine 150 mcg PO ACBREAKFAST 06/04/17 [History] Docusate Sodium [Colace] 100 mg PO DAILY 07/05/18 [History] Past Medical History HEENT History: Reports: Impaired Vision Other HEENT History: glasses Genitourinary History: Reports: None [facility] History: Reports: 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 History: Reports: Other (See Below) Other 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 History: left leg reconstructive surgery Neurological History: Reports: Migraines Endocrine/Metabolic History: Reports: Hyperthyroidism, Other (See Below) Other Endocrine/Metabolic History: 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 problems Hematologic History: Reports: Blood Transfusion(s) - Past Surgical History Female Surgical History: Reports: Section, Hysterectomy Other Female Surgeries/Procedures: radical hyst for ovarial cancer Endocrine Surgical History: Reports: Thyroidectomy Social & Family History - Family History Family Medical History: Noncontributory - Tobacco Use Smoking Status *Q: Unknown Ever Smoked - Caffeine Use Caffeine Use: Reports: Coffee, Soda - Living Situation & Occupation Living situation: Reports: Occupation: Employed ED ROS GENERAL - Review of Systems Review Of Systems: See Below Constitutional: Reports: Fever, Chills HEENT: Reports: No Symptoms Respiratory: Reports: No Symptoms Cardiovascular: Reports: No Symptoms Endocrine: Reports: No Symptoms GI/Abdominal: Reports: Abdominal Pain, Nausea. Denies: Diarrhea, Vomiting : Denies: Dysuria ED EXAM, GI/ABD - Physical Exam Exam: See Below Exam Limited By: No Limitations General Appearance: Alert, No Apparent Distress Ears: Normal External Exam Nose: Normal Inspection Head: Atraumatic, Normocephalic Neck: Normal Inspection Respiratory/Chest: No Respiratory Distress, Lungs Clear, Normal Breath Sounds Cardiovascular: Regular Rate, Rhythm, No Edema, No Murmur GI/Abdominal Exam: Soft, No Organomegaly, No Mass, Other (Moderate tenderness to the lower abdomen with moderate ecchymosis. There is a lower incision with no drainage.) Course - Vital Signs Last Recorded V/S: Last Vital Signs Temp 37.1 C 07/05/18 08:27 Pulse 72 07/05/18 08:27 Resp 18 07/05/18 08:27 BP 137/95 H 07/05/18 08:27 Pulse Ox 99 07/05/18 08:27 - Orders/Labs/Meds Orders: Active Orders 24 hr Category Date Time Status Admission Status [Patient Status] [ADT] Routine ADT 07/05/18 10:52 Ordered Peripheral IV Care [RC] . DIRECTED Care 07/05/18 06:51 Active CULTURE BLOOD [BC] Stat Lab 07/05/18 07:15 Received CULTURE BLOOD [BC] Stat Lab 07/05/18 07:20 Received Sodium Chloride 0.9% [Saline Flush] Med 07/05/18 06:50 Active 10 ml FLUSH ASDIRECTED PRN cefTRIAXone [Rocephin] 2 gm Med 07/05/18 07:00 Active Sodium Chloride 0.9% [Normal Saline] 100 ml IV Q24H Blood Culture x2 Reflex Set [OM.PC] Stat Oth 07/05/18 06:50 Ordered ED Antiemetic Medication Reflex [OM.PC] Stat Oth 07/05/18 06:50 Ordered Peripheral IV Insertion Adult [OM.PC] Stat Oth 07/05/18 06:50 Ordered Medication Orders Ceftriaxone Sodium 2 gm/ (Sodium Chloride) 100 mls @ 200 mls/hr IV Q24H [facility] Last Admin: 07/05/18 07:25 Dose: 200 mls/hr Sodium Chloride (Saline Flush) 10 ml FLUSH ASDIRECTED PRN PRN Reason: Keep Vein Open Last Admin: 07/05/18 07:15 Dose: 10 ml Labs: Laboratory Tests 07/05/18 07/05/18 07/05/18 Range/Units 07:20 07:20 07:20 WBC 11.13 H (3.98-10.04) K/mm3 RBC 3.39 L (3.98-5.22) M/mm3 Hgb 10.1 L (11.2-15.7) gm/L Hct 32.2 L (34.1-44.9) % MCV 95.0 H (79.4-94.8) fl MCH 29.8 (25.6-32.2) pg MCHC 31.4 L (32.2-35.5) g/dl RDW Std Deviation 44.9 (36.4-46.3) fL Plt Count 570 H (182-369) K/mm3 MPV 8.8 L (9.4-12.3) fl Neut % (Auto) 74.0 H (34.0-71.1) % Lymph % (Auto) 17.0 L (19.3-51.7) % Parke % (Auto) 6.6 (4.7-12.5) % Eos % (Auto) 1.6 (0.7-5.8) Baso % (Auto) 0.5 (0.1-1.2) % Neut # (Auto) 8.24 H (1.56-6.13) K/mm3 Lymph # (Auto) 1.89 (1.18-3.74) K/mm3 Parke # (Auto) 0.73 H (0.24-0.36) K/mm3 Eos # (Auto) 0.18 (0.04-0.36) K/mm3 Baso # (Auto) 0.06 (0.01-0.08) K/mm3 Sodium 144 (136-145) mEq/L Potassium 4.0 (3.5-5.1) mEq/L Chloride 107 (98-107) mEq/L Carbon Dioxide 25 (21-32) mEq/L Anion Gap 16.0 H (5-15) BUN 12 (7-18) mg/dL Creatinine 0.8 (0.55-1.02) mg/dL Est Cr Clr Drug Dosing 93.18 mL/min Estimated GFR (MDRD) > 60 (>60) mL/min BUN/Creatinine Ratio 15.0 (14-18) Glucose 99 (74-106) mg/dL Calcium 9.1 (8.5-10.1) mg/dL Total Bilirubin 0.4 (0.2-1.0) mg/dL AST 24 (15-37) U/L ALT 25 (14-59) U/L Alkaline Phosphatase 71 (46-116) U/L C-Reactive Protein 1.1 H* (<1.0) mg/dL Total Protein 7.5 (6.4-8.2) g/dl Albumin 3.5 (3.4-5.0) g/dl Globulin 4.0 gm/dL Albumin/Globulin Ratio 0.9 L (1-2) Lipase 206 (73-393) U/L Urine Color (Yellow) Urine Appearance (Clear) Urine pH (5.0-8.0) Ur Specific Beatty (1.005-1.030) Urine Protein (Negative) Urine Glucose (UA) (Negative) Urine Ketones (Negative) Urine Occult Blood (Negative) Urine Nitrite (Negative) Urine Bilirubin (Negative) Urine Urobilinogen (0.2-1.0) Ur Leukocyte Esterase (Negative) Urine RBC (0-5) /hpf Urine WBC (0-5) /hpf Ur Epithelial Cells (0-5) /hpf Urine Bacteria (FEW) /hpf Urine Mucus (FEW) /hpf 07/05/18 Range/Units 08:06 WBC (3.98-10.04) K/mm3 RBC (3.98-5.22) M/mm3 Hgb (11.2-15.7) gm/L Hct (34.1-44.9) % MCV (79.4-94.8) fl MCH (25.6-32.2) pg MCHC (32.2-35.5) g/dl RDW Std Deviation (36.4-46.3) fL Plt Count (182-369) K/mm3 MPV (9.4-12.3) fl Neut % (Auto) (34.0-71.1) % Lymph % (Auto) (19.3-51.7) % Parke % (Auto) (4.7-12.5) % Eos % (Auto) (0.7-5.8) Baso % (Auto) (0.1-1.2) % Neut # (Auto) (1.56-6.13) K/mm3 Lymph # (Auto) (1.18-3.74) K/mm3 Parke # (Auto) (0.24-0.36) K/mm3 Eos # (Auto) (0.04-0.36) K/mm3 Baso # (Auto) (0.01-0.08) K/mm3 Sodium (136-145) mEq/L Potassium (3.5-5.1) mEq/L Chloride (98-107) mEq/L Carbon Dioxide (21-32) mEq/L Anion Gap (5-15) BUN (7-18) mg/dL Creatinine (0.55-1.02) mg/dL Est Cr Clr Drug Dosing mL/min Estimated GFR (MDRD) (>60) mL/min BUN/Creatinine Ratio (14-18) Glucose (74-106) mg/dL Calcium (8.5-10.1) mg/dL Total Bilirubin (0.2-1.0) mg/dL AST (15-37) U/L ALT (14-59) U/L Alkaline Phosphatase (46-116) U/L C-Reactive Protein (<1.0) mg/dL Total Protein (6.4-8.2) g/dl Albumin (3.4-5.0) g/dl Globulin gm/dL Albumin/Globulin Ratio (1-2) Lipase (73-393) U/L Urine Color Yellow (Yellow) Urine Appearance Clear (Clear) Urine pH 6.0 (5.0-8.0) Ur Specific Beatty > or = 1.030 (1.005-1.030) Urine Protein Negative (Negative) Urine Glucose (UA) Negative (Negative) Urine Ketones Negative (Negative) Urine Occult Blood 2+ H (Negative) Urine Nitrite Negative (Negative) Urine Bilirubin Negative (Negative) Urine Urobilinogen 0.2 (0.2-1.0) Ur Leukocyte Esterase Negative (Negative) Urine RBC 0-5 (0-5) /hpf Urine WBC 0-5 (0-5) /hpf Ur Epithelial Cells 0-5 (0-5) /hpf Urine Bacteria Few (FEW) /hpf Urine Mucus Few (FEW) /hpf Meds: Medications Generic Name Dose Route Start Last Admin Trade Name Freq PRN Reason Stop Dose Admin Ceftriaxone Sodium 2 gm/ 100 mls @ 200 mls/hr 07/05/18 07:00 07/05/18 07:25 Sodium Chloride IV 200 mls/hr Q24H [facility] Administration Sodium Chloride 10 ml 07/05/18 06:50 07/05/18 07:15 Saline Flush FLUSH 10 ml ASDIRECTED PRN Administration Keep Vein Open Discontinued Medications Generic Name Dose Route Start Last Admin Trade Name Freq PRN Reason Stop Dose Admin Diatrizoate Meglum/Diatrizoate Sod 90 ml 07/05/18 07:50 07/05/18 08:51 Gastrografin 37% PO 07/05/18 07:51 90 ml ONETIME ONE Administration Fentanyl 100 mcg 07/05/18 06:52 07/05/18 07:20 Sublimaze IVPUSH 07/05/18 06:53 100 mcg ONETIME ONE Administration Fentanyl 50 mcg 07/05/18 08:36 07/05/18 08:40 Sublimaze IVPUSH 07/05/18 08:37 50 mcg ONETIME ONE Administration Sodium Chloride 1,000 mls @ 1,000 mls/hr 07/05/18 06:50 07/05/18 07:24 Normal Saline IV 07/05/18 07:49 1,000 mls/hr .BOLUS STA Administration Metronidazole 500 mg/ Premix 100 mls @ 100 mls/hr 07/05/18 08:10 07/05/18 08: 25 IV 07/05/18 09:09 100 mls/hr ONETIME ONE Administration Iopamidol 125 ml 07/05/18 07:50 07/05/18 08:51 Isovue-300 (61%) IVPUSH 07/05/18 07:51 100 ml ONETIME ONE Administration Metoclopramide HCl 7.5 mg 07/05/18 08:28 07/05/18 08:32 Reglan IVPUSH 07/05/18 08:29 7.5 mg ONETIME ONE Administration Ondansetron HCl 4 mg 07/05/18 06:50 07/05/18 07:18 Zofran IVPUSH 07/05/18 06:51 4 mg ONETIME ONE Administration - Re-Assessments/Exams Free Text/Narrative Re-Assessment/Exam: 07/05/18 07:03 I ordered an IV NS 1L bolus, zofran 4mg IV, fentanyl 100mcg IV, labs, UA, blood cultures, rocephin [address] a [address] of her abdomen and pelvis. It is the end of my shift. Dr Brooks will be tacking over. Departure - Departure Disposition: Admitted As Inpatient 65 Clinical Impression: Fever and chills, Night sweats, Postoperative abdominal pain Abdominal pain Qualifiers: Abdominal location: lower abdomen, unspecified Qualified Code(s): R10.30 - Lower abdominal pain, unspecified - Discharge Information Referrals: Erika Xiong, PAReinaC [Primary Care Provider] - Forms: ED Department Discharge - My Orders Last 24 Hours: My Active Orders 07/05/18 10:52 Admission Status [Patient Status] [ADT] Routine - Assessment/Plan Last 24 Hours: My Active Orders 07/05/18 10:52 Admission Status [Patient Status] [ADT] Routine <Andrade Brooks - Last Filed: 07/05/18 10:55> Course - Orders/Labs/Meds Labs: Laboratory Tests 07/05/18 07/05/18 07/05/18 Range/Units 07:20 07:20 07:20 WBC 11.13 H (3.98-10.04) K/mm3 RBC 3.39 L (3.98-5.22) M/mm3 Hgb 10.1 L (11.2-15.7) gm/L Hct 32.2 L (34.1-44.9) % MCV 95.0 H (79.4-94.8) fl MCH 29.8 (25.6-32.2) pg MCHC 31.4 L (32.2-35.5) g/dl RDW Std Deviation 44.9 (36.4-46.3) fL Plt Count 570 H (182-369) K/mm3 MPV 8.8 L (9.4-12.3) fl Neut % (Auto) 74.0 H (34.0-71.1) % Lymph % (Auto) 17.0 L (19.3-51.7) % Parke % (Auto) 6.6 (4.7-12.5) % Eos % (Auto) 1.6 (0.7-5.8) Baso % (Auto) 0.5 (0.1-1.2) % Neut # (Auto) 8.24 H (1.56-6.13) K/mm3 Lymph # (Auto) 1.89 (1.18-3.74) K/mm3 Parke # (Auto) 0.73 H (0.24-0.36) K/mm3 Eos # (Auto) 0.18 (0.04-0.36) K/mm3 Baso # (Auto) 0.06 (0.01-0.08) K/mm3 Sodium 144 (136-145) mEq/L Potassium 4.0 (3.5-5.1) mEq/L Chloride 107 (98-107) mEq/L Carbon Dioxide 25 (21-32) mEq/L Anion Gap 16.0 H (5-15) BUN 12 (7-18) mg/dL Creatinine 0.8 (0.55-1.02) mg/dL Est Cr Clr Drug Dosing 93.18 mL/min Estimated GFR (MDRD) > 60 (>60) mL/min BUN/Creatinine Ratio 15.0 (14-18) Glucose 99 (74-106) mg/dL Calcium 9.1 (8.5-10.1) mg/dL Total Bilirubin 0.4 (0.2-1.0) mg/dL AST 24 (15-37) U/L ALT 25 (14-59) U/L Alkaline Phosphatase 71 (46-116) U/L C-Reactive Protein 1.1 H* (<1.0) mg/dL Total Protein 7.5 (6.4-8.2) g/dl Albumin 3.5 (3.4-5.0) g/dl Globulin 4.0 gm/dL Albumin/Globulin Ratio 0.9 L (1-2) Lipase 206 (73-393) U/L Urine Color (Yellow) Urine Appearance (Clear) Urine pH (5.0-8.0) Ur Specific Beatty (1.005-1.030) Urine Protein (Negative) Urine Glucose (UA) (Negative) Urine Ketones (Negative) Urine Occult Blood (Negative) Urine Nitrite (Negative) Urine Bilirubin (Negative) Urine Urobilinogen (0.2-1.0) Ur Leukocyte Esterase (Negative) Urine RBC (0-5) /hpf Urine WBC (0-5) /hpf Ur Epithelial Cells (0-5) /hpf Urine Bacteria (FEW) /hpf Urine Mucus (FEW) /hpf 07/05/18 Range/Units 08:06 WBC (3.98-10.04) K/mm3 RBC (3.98-5.22) M/mm3 Hgb (11.2-15.7) gm/L Hct (34.1-44.9) % MCV (79.4-94.8) fl MCH (25.6-32.2) pg MCHC (32.2-35.5) g/dl RDW Std Deviation (36.4-46.3) fL Plt Count (182-369) K/mm3 MPV (9.4-12.3) fl Neut % (Auto) (34.0-71.1) % Lymph % (Auto) (19.3-51.7) % Parke % (Auto) (4.7-12.5) % Eos % (Auto) (0.7-5.8) Baso % (Auto) (0.1-1.2) % Neut # (Auto) (1.56-6.13) K/mm3 Lymph # (Auto) (1.18-3.74) K/mm3 Parke # (Auto) (0.24-0.36) K/mm3 Eos # (Auto) (0.04-0.36) K/mm3 Baso # (Auto) (0.01-0.08) K/mm3 Sodium (136-145) mEq/L Potassium (3.5-5.1) mEq/L Chloride (98-107) mEq/L Carbon Dioxide (21-32) mEq/L Anion Gap (5-15) BUN (7-18) mg/dL Creatinine (0.55-1.02) mg/dL Est Cr Clr Drug Dosing mL/min Estimated GFR (MDRD) (>60) mL/min BUN/Creatinine Ratio (14-18) Glucose (74-106) mg/dL Calcium (8.5-10.1) mg/dL Total Bilirubin (0.2-1.0) mg/dL AST (15-37) U/L ALT (14-59) U/L Alkaline Phosphatase (46-116) U/L C-Reactive Protein (<1.0) mg/dL Total Protein (6.4-8.2) g/dl Albumin (3.4-5.0) g/dl Globulin gm/dL Albumin/Globulin Ratio (1-2) Lipase (73-393) U/L Urine Color Yellow (Yellow) Urine Appearance Clear (Clear) Urine pH 6.0 (5.0-8.0) Ur Specific Beatty > or = 1.030 (1.005-1.030) Urine Protein Negative (Negative) Urine Glucose (UA) Negative (Negative) Urine Ketones Negative (Negative) Urine Occult Blood 2+ H (Negative) Urine Nitrite Negative (Negative) Urine Bilirubin Negative (Negative) Urine Urobilinogen 0.2 (0.2-1.0) Ur Leukocyte Esterase Negative (Negative) Urine RBC 0-5 (0-5) /hpf Urine WBC 0-5 (0-5) /hpf Ur Epithelial Cells 0-5 (0-5) /hpf Urine Bacteria Few (FEW) /hpf Urine Mucus Few (FEW) /hpf - Re-Assessments/Exams Free Text/Narrative Re-Assessment/Exam: 07/05/18 07:[address] Castro at change of shift. No labs are yet available. Patient is drinking oral contrast in preparation for CT of the abdomen and pelvis with oral and IV contrast to look for suspected pelvic abscess. In the meantime she will receive Rocephin 2 g IV and later Flagyl 500 mg IV. 07/05/18 08:10 Labs are back. White count is elevated at 11.13 with automated differential of 74% neutrophils which is mildly elevated. Hemoglobin is low at 10.1 with hematocrit of 32.2. Platelet count is 570,000. Sodium 144 with potassium of 4.0. Chloride 107 with a bicarbonate 25. And a gap is mildly elevated at 16.0. BUN is 12. Creatinine is 0.8. GFR greater than 60. Glucose is 99. Calcium is 9.1. Liver function is normal. C-reactive protein is 1.1. Lipase is 206. 07/05/18 08:29 patient is complaining of increased nausea since taking oral contrast. We'll give her Reglan 7.5 mg IV. She had Zofran 4 mg IV, initial assessment and treatment 07/05/18 08:34: No complaining of increased pain in the abdomen as well. Will repeat fentanyl 50 g IV. 07/05/18 10:30 CT of the abdomen and pelvis has been completed with oral and IV contrast. As an area of low density being seen within the anterior liver measuring 2.8 cm in size etiology inconclusive. Spleen appears within normal limits. Adrenal glands show no nodule pancreas is normal. Gallbladder contains no calcified gallstones kidneys show symmetric contrast enhancement without any hydronephrosis or mass. To be normal no retroperitoneal adenopathy noted. Hysterectomy is appreciated multiple surgical clips are seen within the pelvis. Contrast noted within the bladder on delayed images no fluid collections are seen to indicate a definitive abscess. Hazy areas of increased density are noted anteriorly within the subcutaneous fat within the pelvis most likely represent change from previous surgery or previous subcutaneous injections. Of note patient is on subcutaneous Lovenox no bowel dilatation is seen appendix is seen and is normal. On my examination of the patient she is exquisitely tender on palpation across the lower abdomen. She cannot stand fully erect to walk. Just an evolving infective process most likely in the hematoma of the abdominal wall. I therefore think is prudent to admit her to the hospital for IV antibiotic therapy. I did speak with Dr. Godwin her primary care [facility] and she concurred with this diagnosis and treatment plan. We will have case management arranged for a bed in the hospital either on the [facility] floor or the MedSurg floor. Departure - Departure Time of Disposition: 10:54 Condition: Fair - Discharge Information *PRESCRIPTION DRUG MONITORING PROGRAM REVIEWED*: No *COPY OF PRESCRIPTION DRUG MONITORING REPORT IN PATIENT [place]: No - My Orders Last 24 Hours: My Active Orders 07/05/18 10:52 Admission Status [Patient Status] [ADT] Routine - Assessment/Plan Last 24 Hours: My Active Orders 07/05/18 10:52 Admission Status [Patient Status] [ADT] Routine
[2018-07-05] MEDS ORDERED: cefTRIAXone 2 GM in Sodium Chloride 0.9% 100 ML IV SCH (07:00)
[2018-07-05] MEDS ORDERED: Iopamidol 612 MG/ML 150 ML Bottle IVPUSH ONE (07:50)
[2018-07-05] MEDS ORDERED: Diatrizoate Meglumine/Diatrizoate Sodium 37% 120 ML Bottle PO ONE (07:50)
[2018-07-05] MEDS ORDERED: metroNIDAZOLE/Normal Saline 500 MG in Premix Bag 1 BAG IV ONE (08:10)
[2018-07-05] MEDS ORDERED: Metoclopramide 10 MG/2 ML SDV IVPUSH ONE (08:28)
--- NOTE | 2018-07-05 10:16 | CT ---
CT abdomen and pelvis Technique: Multiple axial sections were obtained from above the dome of the diaphragm inferiorly through the pubic symphysis. Intravenous and oral contrast was utilized. Delayed images were also obtained through the pelvis. Comparison: No prior CT abdomen or pelvis exam. Findings: Visualized lung bases shows nothing acute. There is an area of low density being seen within the anterior liver measuring 2.8 cm in size. No additional liver abnormality is appreciated. Spleen appears within normal limits. Adrenal glands show no nodule. Pancreas is within normal limits. Gallbladder contains no calcified gallstones. Kidneys show symmetric contrast enhancement without hydronephrosis or mass. Aorta shows atherosclerotic calcification without aneurysm. No retroperitoneal adenopathy is seen. Prior hysterectomy is noted. Multiple surgical clips are seen within the pelvis. Contrast noted within the bladder on delayed images. No fluid collections are seen to indicate abscess. Hazy areas of increased density are noted anteriorly within the subcutaneous fat within the pelvis most likely representing change from previous surgery or previous subcutaneous injections. No bowel dilatation is seen. Appendix is seen which is normal in size. Bone window settings were reviewed which shows disc space narrowing at L4-L5. Impression: 1. 2.8 cm low-density finding within the anterior liver. This may represent a prominent area of fatty infiltration as a normal variant next to the ligamentum teres fissure. This, however is more prominent than usually seen. MRI liver could be obtained to further evaluate. 2. Previous hysterectomy with multiple surgical clips within the pelvis. 3. Haziness within the anterior abdominal wall fat within the pelvis presumably due to previous surgery. 4. Nothing acute is seen on CT study of the abdomen and pelvis. Diagnostic code #9
--- NOTE | 2018-07-05 12:23 | PCM.HP ---
H&P History of Present Illness - General Date of Service: 07/05/18 Admit Problem/Dx: Admission Diagnosis/Problem Admission Diagnosis/Problem Abdominal pain Source of Information: Patient - History of Present Illness Initial Comments - Free Text/Narative: 43 year old female 2 weeks s/p radical abdominal hysterectomy in [place]. Had been doing excellent and then presented to the ER early this morning with fever/chills, left shift and worsening pain. Some nausea and decreased appetite. Improves with: Reports: None Worsens with: Reports: None Abdominal Pain Score (Numeric/FACES): 5 - Related Data Allergies/Adverse Reactions: Allergies Allergy/AdvReac Type Severity Reaction Status Date / Time Latex, Natural Rubber Allergy Rash Verified 06/09/17 16:58 Penicillins Allergy Airway Verified 07/05/18 11:47 Tightness hydromorphone [From Dilaudid] AdvReac Vomiting Verified 07/05/18 11:03 Home Medications: Home Meds Levothyroxine 150 mcg PO ACBREAKFAST 06/04/17 [History] Acetaminophen [Tylenol] 650 mg PO Q4H PRN 07/05/18 [History] Docusate Sodium [Colace] 100 mg PO DAILY 07/05/18 [History] Enoxaparin Sodium [Lovenox] 30 mg SQ DAILY 07/05/18 [History] Ibuprofen [Ibu] 600 mg PO Q6HR PRN 07/05/18 [History] Past Medical History HEENT History: Reports: Impaired Vision Other HEENT History: glasses Genitourinary History: Reports: None 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: Reports: 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 History: Reports: Other (See Below) Other 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 History: left leg reconstructive surgery Neurological History: Reports: Migraines Endocrine/Metabolic History: Reports: Hyperthyroidism, Other (See Below) Other Endocrine/Metabolic History: 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 problems Hematologic History: Reports: Blood Transfusion(s) - Past Surgical History Female Surgical History: Reports: Section, Hysterectomy Other Female Surgeries/Procedures: radical hyst for ovarial cancer Endocrine Surgical History: Reports: Thyroidectomy Social & Family History - Family History Family Medical History: Noncontributory - Tobacco Use Smoking Status *Q: Former Smoker Years of Tobacco use: 20 Used Tobacco, but Quit: Yes Month/Year Tobacco Last Used: 12/27/2016 Second Hand Smoke Exposure: No - Caffeine Use Caffeine Use: Reports: Coffee - Recreational Drug Use Recreational Drug Use: No - Living Situation & Occupation Living situation: Reports: Occupation: Employed H&P Review of Systems - Review of Systems: Review Of Systems: See Below General: Reports: No Symptoms HEENT: Reports: No Symptoms Pulmonary: Reports: No Symptoms Cardiovascular: Reports: No Symptoms Gastrointestinal: Reports: No Symptoms Genitourinary: Reports: No Symptoms 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: Reports: No Symptoms Skin: Reports: No Symptoms Psychiatric: Reports: No Symptoms Neurological: Reports: No Symptoms Hematologic/Lymphatic: Reports: No Symptoms Immunologic: Reports: No Symptoms Exam - Exam Exam: See Below - Vital Signs Vital Signs: Last Vital Signs Temp 36.8 C 07/05/18 11:18 Pulse 80 07/05/18 11:18 Resp 17 07/05/18 11:18 BP 118/94 H 07/05/18 11:18 Pulse Ox 99 07/05/18 11:18 Weight: 65.771 kg - Exam General: Alert, Oriented, 4 HEENT: PERRLA, Hearing Intact, Mucosa Moist & [place], Nares Patent, Normal Nasal Septum, Posterior Pharynx Clear, Conjunctiva Clear, EOMI, EACs Clear, TMs Clear Neck: Supple, Trachea Midline, 2 Lungs: Clear to Auscultation, Normal Respiratory Effort Cardiovascular: Regular Rate, Regular Rhythm GI/Abdominal Exam: Normal Bowel Sounds, Soft, No Organomegaly, No Distention, No Abnormal Bruit, Pelvis Stable, Guarding, Tender, Other (large hematoma above incision) Back Exam: Normal Inspection, Full Range of Motion, NT Extremities: Normal Inspection, Normal Range of Motion, Non-Tender, No Pedal Edema, Normal Capillary Refill Skin: Warm, Dry, Intact Neurological: Cranial Nerves Intact, Reflexes Equal Bilateral Neuro Extensive - Mental Status: Alert, Oriented x3, Normal Mood/Affect, Normal Cognition Neuro Extensive - Motor, Sensory, Reflexes: CN II-XII Intact, Normal Gait, Normal Reflexes Psychiatric: Alert, Normal Affect, Normal Mood - Patient Data Lab Results Last 24 hrs: Laboratory Results - last 24 hr 07/05/18 07/05/18 07/05/18 Range/Units 07:20 07:20 07:20 WBC 11.13 H (3.98-10.04) K/mm3 RBC 3.39 L (3.98-5.22) M/mm3 Hgb 10.1 L (11.2-15.7) gm/L Hct 32.2 L (34.1-44.9) % MCV 95.0 H (79.4-94.8) fl MCH 29.8 (25.6-32.2) pg MCHC 31.4 L (32.2-35.5) g/dl RDW Std Deviation 44.9 (36.4-46.3) fL Plt Count 570 H (182-369) K/mm3 MPV 8.8 L (9.4-12.3) fl Neut % (Auto) 74.0 H (34.0-71.1) % Lymph % (Auto) 17.0 L (19.3-51.7) % [place] % (Auto) 6.6 (4.7-12.5) % Eos % (Auto) 1.6 (0.7-5.8) Baso % (Auto) 0.5 (0.1-1.2) % Neut # (Auto) 8.24 H (1.56-6.13) K/mm3 Lymph # (Auto) 1.89 (1.18-3.74) K/mm3 [place] # (Auto) 0.73 H (0.24-0.36) K/mm3 Eos # (Auto) 0.18 (0.04-0.36) K/mm3 Baso # (Auto) 0.06 (0.01-0.08) K/mm3 Sodium 144 (136-145) mEq/L Potassium 4.0 (3.5-5.1) mEq/L Chloride 107 (98-107) mEq/L Carbon Dioxide 25 (21-32) mEq/L Anion Gap 16.0 H (5-15) BUN 12 (7-18) mg/dL Creatinine 0.8 (0.55-1.02) mg/dL Est Cr Clr Drug Dosing 93.18 mL/min Estimated GFR (MDRD) > 60 (>60) mL/min BUN/Creatinine Ratio 15.0 (14-18) Glucose 99 (74-106) mg/dL Calcium 9.1 (8.5-10.1) mg/dL Total Bilirubin 0.4 (0.2-1.0) mg/dL AST 24 (15-37) U/L ALT 25 (14-59) U/L Alkaline Phosphatase 71 (46-116) U/L C-Reactive Protein 1.1 H* (<1.0) mg/dL Total Protein 7.5 (6.4-8.2) g/dl Albumin 3.5 (3.4-5.0) g/dl Globulin 4.0 gm/dL Albumin/Globulin Ratio 0.9 L (1-2) Lipase 206 (73-393) U/L Urine Color (Yellow) Urine Appearance (Clear) Urine pH (5.0-8.0) Ur Specific [place] (1.005-1.030) Urine Protein (Negative) Urine Glucose (UA) (Negative) Urine Ketones (Negative) Urine Occult Blood (Negative) Urine Nitrite (Negative) Urine Bilirubin (Negative) Urine Urobilinogen (0.2-1.0) Ur Leukocyte Esterase (Negative) Urine RBC (0-5) /hpf Urine WBC (0-5) /hpf Ur Epithelial Cells (0-5) /hpf Urine Bacteria (FEW) /hpf Urine Mucus (FEW) /hpf 07/05/18 Range/Units 08:06 WBC (3.98-10.04) K/mm3 RBC (3.98-5.22) M/mm3 Hgb (11.2-15.7) gm/L Hct (34.1-44.9) % MCV (79.4-94.8) fl MCH (25.6-32.2) pg MCHC (32.2-35.5) g/dl RDW Std Deviation (36.4-46.3) fL Plt Count (182-369) K/mm3 MPV (9.4-12.3) fl Neut % (Auto) (34.0-71.1) % Lymph % (Auto) (19.3-51.7) % [place] % (Auto) (4.7-12.5) % Eos % (Auto) (0.7-5.8) Baso % (Auto) (0.1-1.2) % Neut # (Auto) (1.56-6.13) K/mm3 Lymph # (Auto) (1.18-3.74) K/mm3 [place] # (Auto) (0.24-0.36) K/mm3 Eos # (Auto) (0.04-0.36) K/mm3 Baso # (Auto) (0.01-0.08) K/mm3 Sodium (136-145) mEq/L Potassium (3.5-5.1) mEq/L Chloride (98-107) mEq/L Carbon Dioxide (21-32) mEq/L Anion Gap (5-15) BUN (7-18) mg/dL Creatinine (0.55-1.02) mg/dL Est Cr Clr Drug Dosing mL/min Estimated GFR (MDRD) (>60) mL/min BUN/Creatinine Ratio (14-18) Glucose (74-106) mg/dL Calcium (8.5-10.1) mg/dL Total Bilirubin (0.2-1.0) mg/dL AST (15-37) U/L ALT (14-59) U/L Alkaline Phosphatase (46-116) U/L C-Reactive Protein (<1.0) mg/dL Total Protein (6.4-8.2) g/dl Albumin (3.4-5.0) g/dl Globulin gm/dL Albumin/Globulin Ratio (1-2) Lipase (73-393) U/L Urine Color Yellow (Yellow) Urine Appearance Clear (Clear) Urine pH 6.0 (5.0-8.0) Ur Specific [place] > or = 1.030 (1.005-1.030) Urine Protein Negative (Negative) Urine Glucose (UA) Negative (Negative) Urine Ketones Negative (Negative) Urine Occult Blood 2+ H (Negative) Urine Nitrite Negative (Negative) Urine Bilirubin Negative (Negative) Urine Urobilinogen 0.2 (0.2-1.0) Ur Leukocyte Esterase Negative (Negative) Urine RBC 0-5 (0-5) /hpf Urine WBC 0-5 (0-5) /hpf Ur Epithelial Cells 0-5 (0-5) /hpf Urine Bacteria Few (FEW) /hpf Urine Mucus Few (FEW) /hpf Result Diagrams: 07/05/18 07:20 07/05/18 07:20 Problem List Initiated/Reviewed/Updated: Yes Orders Last 24hrs: Active Orders 24 hr Category Date Time Status Admission Status [Patient Status] [ADT] Routine ADT 07/05/18 10:52 Active Peripheral IV Care [RC] . DIRECTED Care 07/05/18 06:51 Active CULTURE BLOOD [BC] Stat Lab 07/05/18 07:15 Received CULTURE BLOOD [BC] Stat Lab 07/05/18 07:20 Received Sodium Chloride 0.9% [Saline Flush] Med 07/05/18 06:50 Active 10 ml FLUSH ASDIRECTED PRN cefTRIAXone [Rocephin] 2 gm Med 07/05/18 07:00 Active Sodium Chloride 0.9% [Normal Saline] 100 ml IV Q24H Blood Culture x2 Reflex Set [OM.PC] Stat Oth 07/05/18 06:50 Ordered ED Antiemetic Medication Reflex [OM.PC] Stat Oth 07/05/18 06:50 Ordered Peripheral IV Insertion Adult [OM.PC] Stat Oth 07/05/18 06:50 Ordered Medication Orders Ceftriaxone Sodium 2 gm/ (Sodium Chloride) 100 mls @ 200 mls/hr IV Q24H GLORIA Last Admin: 07/05/18 07:25 Dose: 200 mls/hr Sodium Chloride (Saline Flush) 10 ml FLUSH ASDIRECTED PRN PRN Reason: Keep Vein Open Last Admin: 07/05/18 07:15 Dose: 10 ml Assessment/Plan Comment:: Cellulitis vs infection in hematoma. Doubt peritonitis given no rebound and not as tender. IV antibiotics. Control pain. Repeat CBC tomorrow
[2018-07-05] MEDS ORDERED: Ondansetron 4 MG/2 ML SDV IVPUSH PRN (12:37)
[2018-07-05] MEDS: ceFAZolin 1 GM in Premix Bag 1 BAG IV SCH ×2 (13:40→19:07)
[2018-07-05] MEDS: Acetaminophen/HYDROcodone 325-5 MG Tab PO PRN ×2 (13:43→19:31)
[2018-07-05] MEDS: Ibuprofen 600 MG Tab PO PRN ×2 (15:35→21:48)
[2018-07-06] MEDS: ceFAZolin 1 GM in Premix Bag 1 BAG IV SCH ×4 (00:36→17:53)
[2018-07-06] MEDS: Acetaminophen/HYDROcodone 325-5 MG Tab PO PRN ×3 (00:41→16:13)
[2018-07-06] MEDS: Ibuprofen 600 MG Tab PO PRN (05:35)
[2018-07-06 18:06] VITALS: BP 126/83
== END 2018-07-06 18:00 | disposition home or self-care (01) | DRG 863 ==
LOC: JD.ED 06:12 → JD.OB 10:52
PROVIDERS: ADMIT Obstetrics & Gynecology; ATTEND Obstetrics & Gynecology
DX: T81.40XA Infection following a procedure, unspecified, initial encounter (principal); L03.311 Cellulitis of abdominal wall; L76.32 Postprocedural hematoma of skin and subcutaneous tissue following other procedure; H54.7 Unspecified visual loss; E89.0 Postprocedural hypothyroidism; G43.909 Migraine, unspecified, not intractable, without status migrainosus; Y83.8 Other surgical procedures as the cause of abnormal reaction of the patient, or of later complication, without mention of misadventure at the time of the procedure; Z87.891 Personal history of nicotine dependence; Z88.5 Allergy status to narcotic agent; Z88.0 Allergy status to penicillin; Z79.899 Other long term (current) drug therapy; Z90.710 Acquired absence of both cervix and uterus; Z85.41 Personal history of malignant neoplasm of cervix uteri
CPT/HCPCS: 36415; 74177; 74177-26; 80053; 81001; 83690; 85025; 86140; 87040; 96361; 96365; 96366; 96367; 96375; 96376; 99285-25; A9270-GY; J0690; J0696; J2405; J2765; J3010; J3490; J7030; J7040; J7050; Q9963; Q9967

== ENCOUNTER 2018-10-15 08:56 | Emergency (ER) | payer OTHER ==
[2018-10-15] MEDS ORDERED: Ondansetron 4 MG/2 ML SDV IVPUSH ONE (09:28)
[2018-10-15] MEDS ORDERED: Sodium Chloride 0.9% 1,000 ML IV STA (09:28)
[2018-10-15] MEDS ORDERED: Sodium Chloride 0.9% 10 ML Syringe FLUSH PRN (09:28)
[2018-10-15] MEDS ORDERED: fentaNYL 100 MCG/2 ML SDV IVPUSH ONE (09:31)
[2018-10-15] MEDS ORDERED: Iopamidol 612 MG/ML 100 ML Bottle IVPUSH ONE (10:08)
[2018-10-15] MEDS ORDERED: Diatrizoate Meglumine/Diatrizoate Sodium 37% 120 ML Bottle PO ONE (10:08)
[2018-10-15] MEDS ORDERED: Sodium Chloride 0.9% 10 ML Syringe FLUSH ONE (10:08)
[2018-10-15] MEDS ORDERED: Sodium Chloride 0.9% 100 ML IV SCH (10:15)
--- NOTE | 2018-10-15 10:48 | EDM.PDOC ---
ED HPI GENERAL MEDICAL PROBLEM - General Chief Complaint: Abdominal Pain Stated Complaint: ABDOMINAL PAIN Time Seen by Provider: 10/15/18 09:05 Source of Information: Reports: Patient History Limitations: Reports: No Limitations - History of Present Illness INITIAL COMMENTS - FREE TEXT/NARRATIVE: The patient presents with left lower abdominal pain. This has been going on for a couple weeks. She had just been diagnosed with 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 and had a hysterectomy salpingoophorectomy and the upper part of vagina removed. She had chemo about 3 months ago. She did see her doctor 2 weeks ago but they were not concerned about the pain at that time. She says the pain is worse. It radiates to her low back. She says eating will make the pain worse. The pain is there constantly but gets worse at times. She has nausea and vomiting. She has chills but no measurable fever. She has no cough, congestion, runny nose, chest pain or shortness of breath. She has no dysuria. She has some diarrhea. Onset: Gradual Duration: Week(s): (2) Location: Reports: Abdomen (left lower), Back Quality: Reports: Sharp Severity: Severe Improves with: Reports: None Worsens with: Reports: Other (Eating) Associated Symptoms: Reports: Fever/Chills, Nausea/Vomiting. Denies: Chest Pain , Cough, Headaches, Shortness of Breath Abdominal Pain Score (Numeric/FACES): 8 - Related Data Allergies Allergy/AdvReac Type Severity Reaction Status Date / Time Latex, Natural Rubber Allergy Rash Verified 10/15/18 09:12 Penicillins Allergy Airway Verified 10/15/18 09:12 Tightness hydromorphone [From Dilaudid] AdvReac Vomiting Verified 10/15/18 09:12 Home Meds: Home Meds Levothyroxine 150 mcg PO ACBREAKFAST 06/04/17 [History] Diphenoxylate HCl/Atropine [Lomotil] 2 tab PO Q6HR PRN 10/15/18 [History] Estradiol [Estrace] 1 mg PO DAILY 10/15/18 [History] Hydrocodone/Acetaminophen [Hydrocodon-Acetaminophen 5-325] 1 - 2 each PO Q6HR PRN #20 tablet 10/15/18 [Rx] Ondansetron HCl [Zofran] 8 mg PO Q8HR PRN 01/18/19 [History] Past Medical History HEENT History: Reports: Impaired Vision Other HEENT History: glasses Genitourinary History: Reports: None INSTRUMENT LENS GENERATOR History: Reports: Other INSTRUMENT LENS GENERATOR History: hyst. cervixal cancer 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 History: Reports: Other (See Below) Other 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 History: left leg reconstructive surgery Neurological History: Reports: Migraines Psychiatric History: Reports: Anxiety Endocrine/Metabolic History: Reports: Hyperthyroidism, Other (See Below) Other Endocrine/Metabolic History: 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 problems Hematologic History: Reports: Blood Transfusion(s) Oncologic (Cancer) History: Reports: Cervix - Past Surgical History Female Surgical History: Reports: Section, Hysterectomy Other Female Surgeries/Procedures: radical hyst for ovarial cancer;. uterus removed, tubes removed, lymph nodes removed, and top of vaginal removed Endocrine Surgical History: Reports: Thyroidectomy Other Oncologic Surgeries/Procedures: [facility] 07/23/2018 Social & Family History - Family History Family Medical History: Noncontributory - Tobacco Use Smoking Status *Q: Former Smoker Used Tobacco, but Quit: Yes Month/Year Tobacco Last Used: "while ago" - Caffeine Use Caffeine Use: Reports: Coffee, Soda Other Caffeine Use: soda occassionally - Recreational Drug Use Recreational Drug Use: No - Living Situation & Occupation Living situation: Reports: Occupation: Employed ED ROS GENERAL - Review of Systems Review Of Systems: See Below Constitutional: Reports: Chills. Denies: Fever HEENT: Reports: No Symptoms Respiratory: Reports: No Symptoms Cardiovascular: Reports: No Symptoms Endocrine: Reports: No Symptoms GI/Abdominal: Reports: Abdominal Pain, Diarrhea, Nausea, Vomiting : Reports: No Symptoms ED EXAM, GI/ABD - Physical Exam Exam: See Below Exam Limited By: No Limitations General Appearance: Alert, No Apparent Distress Ears: Normal External Exam Nose: Normal Inspection Head: Atraumatic, Normocephalic Neck: Normal Inspection Respiratory/Chest: No Respiratory Distress, Lungs Clear, Normal Breath Sounds Cardiovascular: Regular Rate, Rhythm, No Edema, No Murmur GI/Abdominal Exam: Soft, No Organomegaly, No Mass, Tender (Moderate tenderness to the left lower abdomen) Back Exam: Other (Mild pain upon palpation to the left lower back) Extremities: Normal Inspection Course - Vital Signs Last Recorded V/S: Last Vital Signs Temp 97.7 F 10/15/18 09:06 Pulse 73 10/15/18 09:06 Resp 16 10/15/18 09:06 BP 161/112 H 10/15/18 09:06 Pulse Ox 100 10/15/18 09:06 - Orders/Labs/Meds Orders: Active Orders 24 hr Category Date Time Status Peripheral IV Care [RC] . DIRECTED Care 10/15/18 09:29 Active UA W/MICROSCOPIC [URIN] Stat Lab 10/15/18 09:28 Stop Req Sodium Chloride 0.9% [Saline Flush] Med 10/15/18 09:28 Active 10 ml FLUSH ASDIRECTED PRN ED Antiemetic Medication Reflex [OM.PC] Stat Oth 10/15/18 09:29 Ordered Peripheral IV Insertion Adult [OM.PC] Stat Oth 10/15/18 09:28 Ordered Medication Orders Sodium Chloride (Saline Flush) 10 ml FLUSH ASDIRECTED PRN PRN Reason: Keep Vein Open Last Admin: 10/15/18 09:43 Dose: 10 ml Labs: Laboratory Tests 10/15/18 10/15/18 Range/Units 09:39 09:39 WBC 4.71 (3.98-10.04) K/mm3 RBC 4.81 (3.98-5.22) M/mm3 Hgb 13.8 (11.2-15.7) gm/L Hct 42.5 (34.1-44.9) % MCV 88.4 (79.4-94.8) fl MCH 28.7 (25.6-32.2) pg MCHC 32.5 (32.2-35.5) g/dl RDW Std Deviation 49.5 H (36.4-46.3) fL Plt Count 270 (182-369) K/mm3 MPV 8.8 L (9.4-12.3) fl Neut % (Auto) 73.1 H (34.0-71.1) % Lymph % (Auto) 15.5 L (19.3-51.7) % [place] % (Auto) 10.2 (4.7-12.5) % Eos % (Auto) 0.8 (0.7-5.8) Baso % (Auto) 0.4 (0.1-1.2) % Neut # (Auto) 3.44 (1.56-6.13) K/mm3 Lymph # (Auto) 0.73 L (1.18-3.74) K/mm3 [place] # (Auto) 0.48 H (0.24-0.36) K/mm3 Eos # (Auto) 0.04 (0.04-0.36) K/mm3 Baso # (Auto) 0.02 (0.01-0.08) K/mm3 Sodium 144 (136-145) mEq/L Potassium 3.7 (3.5-5.1) mEq/L Chloride 107 (98-107) mEq/L Carbon Dioxide 25 (21-32) mEq/L Anion Gap 15.7 H (5-15) BUN 9 (7-18) mg/dL Creatinine 0.9 (0.55-1.02) mg/dL Est Cr Clr Drug Dosing 83.36 mL/min Estimated GFR (MDRD) > 60 (>60) mL/min BUN/Creatinine Ratio 10.0 L (14-18) Glucose 96 (74-106) mg/dL Calcium 9.7 (8.5-10.1) mg/dL Total Bilirubin 0.6 (0.2-1.0) mg/dL AST 18 (15-37) U/L ALT 21 (14-59) U/L Alkaline Phosphatase 83 (46-116) U/L Total Protein 8.0 (6.4-8.2) g/dl Albumin 4.2 (3.4-5.0) g/dl Globulin 3.8 gm/dL Albumin/Globulin Ratio 1.1 (1-2) Lipase 141 (73-393) U/L Meds: Medications Generic Name Dose Route Start Last Admin Trade Name Freq PRN Reason Stop Dose Admin Sodium Chloride 10 ml 10/15/18 09:28 10/15/18 09:43 Saline Flush FLUSH 10 ml ASDIRECTED PRN Administration Keep Vein Open Discontinued Medications Generic Name Dose Route Start Last Admin Trade Name Freq PRN Reason Stop Dose Admin Diatrizoate Meglum/Diatrizoate Sod 90 ml 10/15/18 10:08 10/15/18 10:41 Gastrografin 37% PO 10/15/18 10:09 90 ml ONETIME ONE Administration Fentanyl 100 mcg 10/15/18 09:31 10/15/18 09:42 Sublimaze IVPUSH 10/15/18 09:32 100 mcg ONETIME ONE Administration Sodium Chloride 1,000 mls @ 1,000 mls/hr 10/15/18 09:28 10/15/18 09:43 Normal Saline IV 10/15/18 10:27 1,000 mls/hr .BOLUS STA Administration Sodium Chloride 100 mls @ 60 mls/hr 10/15/18 10:15 Normal Saline IV ASDIRECTED GLORIA Iopamidol 100 ml 10/15/18 10:08 10/15/18 10:42 Isovue-300 (61%) IVPUSH 10/15/18 10:09 78 ml ONETIME ONE Administration Ondansetron HCl 4 mg 10/15/18 09:28 10/15/18 09:42 Zofran IVPUSH 10/15/18 09:29 4 mg ONETIME ONE Administration Sodium Chloride 10 ml 10/15/18 10:08 10/15/18 10:42 Saline Flush FLUSH 10/15/18 10:09 10 ml ONETIME ONE Administration - Re-Assessments/Exams Free Text/Narrative Re-Assessment/Exam: 10/15/18 10:50 I ordered an IV NS 1L bolus, zofran 4mg IV, dilaudid 1mg IV, labs, UA and a CT of her abdomen and pelvis. 10/15/18 11:22 Her CBC and CMP look good. He CT shows incidental findings. Nothing acute is appreciated on CT study of the abdomen and pelvis. Departure - Departure Time of Disposition: 11:35 Disposition: Home, Self-Care 01 Condition: Good Clinical Impression: Abdominal pain Qualifiers: Abdominal location: left lower quadrant Qualified Code(s): R10.32 - Left lower quadrant pain - Discharge Information *PRESCRIPTION DRUG MONITORING PROGRAM REVIEWED*: No *COPY OF PRESCRIPTION DRUG MONITORING REPORT IN PATIENT [place]: No Prescriptions: Hydrocodone/Acetaminophen [Hydrocodon-Acetaminophen 5-325] 1 - 2 each PO Q6HR PRN #20 tablet PRN Reason: Pain Referrals: PCP,None [Primary Care Provider] - Forms: ED Department Discharge Additional Instructions: Take your medication as prescribed. Try the hydrocodone for pain. Follow up with your doctor. Please return if you are worse. - My Orders Last 24 Hours: My Active Orders 10/15/18 09:28 UA W/MICROSCOPIC [URIN] Stat Sodium Chloride 0.9% [Saline Flush] 10 ml FLUSH ASDIRECTED PRN Peripheral IV Insertion Adult [OM.PC] Stat 10/15/18 09:29 Peripheral IV Care [RC] . DIRECTED ED Antiemetic Medication Reflex [OM.PC] Stat - Assessment/Plan Last 24 Hours: My Active Orders 10/15/18 09:28 UA W/MICROSCOPIC [URIN] Stat Sodium Chloride 0.9% [Saline Flush] 10 ml FLUSH ASDIRECTED PRN Peripheral IV Insertion Adult [OM.PC] Stat 10/15/18 09:29 Peripheral IV Care [RC] . DIRECTED ED Antiemetic Medication Reflex [OM.PC] Stat
--- NOTE | 2018-10-15 11:08 | CT ---
CT abdomen and pelvis Technique: Multiple axial sections were obtained from above the dome of the diaphragm inferiorly through the pubic symphysis. Intravenous and oral contrast was utilized. Delayed images were obtained through the bladder. Comparison: Prior CT abdomen and pelvis exam of 07/05/18. Findings: Small portion of the visualized lung bases shows nothing acute. Low density abnormality is seen to the ligamentum teres fissure measuring up to 2.8 cm which is stable from previous CT exam and most likely represents focal amount of fat. No additional abnormality is identified within the liver. Spleen appears within normal limits. Adrenal glands show no nodule. Kidneys show symmetric contrast enhancement without hydronephrosis or mass. Gallbladder contains no calcified gallstones. Aorta shows atherosclerotic calcification which continues into the iliac vessels with no aneurysm. No retroperitoneal adenopathy is seen. No mesenteric abnormalities are seen. Numerous surgical clips are seen within the pelvis. No pelvic mass or adenopathy is identified. Artifact is noted from left hip pin. No bowel dilatation is seen. Appendix is felt to be visualized and within normal limits in size. Bone window settings were reviewed which shows disc space narrowing and vacuum phenomena within the L4-5 disc. Mild degenerative change is noted within both hips. Delayed images shows a small amount of contrast within the bladder. Impression: 1. Incidental findings. Nothing acute is appreciated on CT study of the abdomen and pelvis. Diagnostic code #2
[2018-10-15 11:59] VITALS: BP 111/75
== END 2018-10-15 11:53 | disposition home or self-care (01) ==
LOC: JD.ED 08:56
DX: R10.32 Left lower quadrant pain (principal); E05.90 Thyrotoxicosis, unspecified without thyrotoxic crisis or storm; Z87.891 Personal history of nicotine dependence; Z91.040 Latex allergy status; Z88.0 Allergy status to penicillin; Z88.5 Allergy status to narcotic agent; Z79.899 Other long term (current) drug therapy
CPT/HCPCS: 36415; 74177; 80053; 83690; 85025; 96361; 96374; 96375; 99284; J2405; J3010; J7040; Q9963; Q9967

== ENCOUNTER 2019-01-17 19:58 | Emergency (ER) | payer OTHER ==
[2019-01-17 20:06] VITALS: BP 148/83
[2019-01-17] MEDS ORDERED: Ketorolac 30 MG/ML SDV IM ONE (20:28)
--- NOTE | 2019-01-17 20:33 | EDM.PDOC ---
ED HPI GENERAL MEDICAL PROBLEM - General Chief Complaint: Lower Extremity Injury/Pain Stated Complaint: knee pain Time Seen by Provider: 01/17/19 20:08 Source of Information: Reports: Patient, RN Notes Reviewed History Limitations: Reports: No Limitations - History of Present Illness INITIAL COMMENTS - FREE TEXT/NARRATIVE: Patient is a 43-year-old female who presents to the ED for the evaluation of right knee pain. The patient states that she was over at her friend's house shortly before the injury when she was standing on a deck and she turned, when she felt her knee twist a little bit, and then had sharp pain directly into her right knee. She states that most of the pain is into the posterior aspect and lateral aspect of her right knee. She states with weightbearing there is mild pressure above her kneecap. The patient states that she is able to walk, however it is painful. She notes that she has had a previous injury to this knee where she is had fluid drained out of it in the past and a cortisone shot. She states that her primary care provider is Erika Xiong. She has seen Dr. Medrano [facility] [place] for left knee and orthopedic issues in previous times. She did not take anything for pain medications before coming to the ER. She would rate her pain at a 6 out of 10 today. 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 History: Reports: Other (See Below) Other 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 History: left leg reconstructive surgery Neurological History: Reports: Migraines Psychiatric History: Reports: Anxiety Endocrine/Metabolic History: Reports: Hyperthyroidism, Other (See Below) Other Endocrine/Metabolic History: 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 problems Hematologic History: Reports: Blood Transfusion(s) Oncologic (Cancer) History: Reports: Cervix - Past Surgical History Female Surgical History: Reports: Section, Hysterectomy Other Female Surgeries/Procedures: radical hyst for 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;. uterus removed, tubes removed, lymph nodes removed, and top of vaginal removed Endocrine Surgical History: Reports: Thyroidectomy Other Oncologic Surgeries/Procedures: TV 07/23/2018 Social & Family History - Family History Family Medical History: Noncontributory - Tobacco Use Smoking Status *Q: Former Smoker Used Tobacco, but Quit: Yes Month/Year Tobacco Last Used: 1 year - Caffeine Use Caffeine Use: Reports: None Other Caffeine Use: soda occassionally - Recreational Drug Use Recreational Drug Use: No - Living Situation & Occupation Living situation: Reports: Occupation: Employed Review of Systems - Review of Systems Review Of Systems: See Below Constitutional: Reports: No Symptoms Eyes: Reports: No Symptoms Ears: Reports: No Symptoms Nose: Reports: No Symptoms Mouth/Throat: Reports: No Symptoms Respiratory: Reports: No Symptoms Cardiovascular: Reports: No Symptoms GI/Abdominal: Reports: No Symptoms Genitourinary: Reports: No Symptoms 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: Reports: Joint Pain (right knee). Denies: Joint Swelling, Muscle Pain, Muscle Stiffness Skin: Reports: No Symptoms Neurological: Denies: Numbness, Tingling Psychiatric: Reports: No Symptoms ED EXAM, GENERAL - Physical Exam Exam: See Below Exam Limited By: No Limitations General Appearance: Alert, WD/WN, No Apparent Distress Respiratory/Chest: No Respiratory Distress, Lungs Clear, Normal Breath Sounds, No Accessory Muscle Use, Chest Non-Tender Cardiovascular: Normal Peripheral Pulses, Regular Rate, Rhythm, No Murmur Extremities: Normal Inspection, Normal Capillary Refill, Limited Range of Motion (of right knee d/t pain, patient is able to passively move the knee in all ROM exercises. Most of her pain is on the lateral R knee and in the posterior aspect of the right knee.) Neurological: Alert, Oriented, Normal Cognition, Normal Gait, Normal Reflexes, No Motor/Sensory Deficits Psychiatric: Normal Affect, Normal Mood Skin Exam: Warm, Dry, Intact, Normal Color, No Rash Course - Vital Signs Last Recorded V/S: Last Vital Signs Temp 97.3 F 01/17/19 20:01 Pulse 80 01/17/19 20:01 Resp 16 01/17/19 20:01 BP 148/83 H 01/17/19 20:01 Pulse Ox 99 01/17/19 20:01 - Re-Assessments/Exams Free Text/Narrative Re-Assessment/Exam: 01/17/19 20:34 Patient presents to the ED for evaluation of sudden onset right knee pain. The patient has likely sprained ligament on the lateral portion of her right knee. I will provide her with a knee immobilizer brace, 30 mg IM Toradol for pain relief. I have recommended that she follow-up with Dr. Medrano if these conservative measures do not provide much relief within the next week or so. I also recommended RICE as well. The patient is amenable to this plan. Departure - Departure Time of Disposition: 20:36 Disposition: Home, Self-Care 01 Condition: Fair Clinical Impression: Knee LCL sprain Qualifiers: Encounter type: initial encounter Laterality: right Qualified Code(s): S83.421A - Sprain of lateral collateral ligament of right knee, initial encounter - Discharge Information *PRESCRIPTION DRUG MONITORING PROGRAM REVIEWED*: No *COPY OF PRESCRIPTION DRUG MONITORING REPORT IN PATIENT [place]: No Instructions: Knee Sprain, Adult Referrals: PCP,None [Primary Care Provider] - Additional Instructions: You have been evaluated in the ED for your right knee pain. Please use ice/heat as tolerated to the affected area. You may take tylenol 500 mg or ibuprofen 600mg q6 hrs for pain relief. Please do so until you have a tolerable level of pain with activity. Do not exceed 4000mg tylenol, Do not exceed 3200mg ibuprofen in a 24 hour time period. Please wear the knee immobilizing brace as tolerated for the feeling of stability to the right knee. If your pain is not much better in roughly 1 week's time with these conservative measures, recommend that you follow up with Dr. Medrano [facility] in [place]. Please return to ED if your symptoms should change or worsen.
== END 2019-01-17 20:49 | disposition home or self-care (01) ==
LOC: JD.ED 19:58
DX: S83.421A Sprain of lateral collateral ligament of right knee, initial encounter (principal); Z91.040 Latex allergy status; Z88.0 Allergy status to penicillin; Z88.5 Allergy status to narcotic agent; Z79.899 Other long term (current) drug therapy; Z87.891 Personal history of nicotine dependence; X50.1XXA Overexertion from prolonged static or awkward postures, initial encounter
CPT/HCPCS: 96372; 99283; J1885

== ENCOUNTER 2019-01-20 12:05 | Emergency (ER) | payer OTHER ==
--- NOTE | 2019-01-20 13:06 | EDM.PDOC ---
ED HPI GENERAL MEDICAL PROBLEM - General Chief Complaint: ENT Problem Stated Complaint: FACE PAIN JAW PAIN Time Seen by Provider: 01/20/19 12:17 Source of Information: Reports: Patient History Limitations: Reports: No Limitations - History of Present Illness INITIAL COMMENTS - FREE TEXT/NARRATIVE: 43 y/o female presents to ER with cc bilateral jaw pain. She has a history of bad dental issues. She is currently being seen by a dentist is [facility] and is schedule to see them again February 10 for dentures. She reports over the past few days her dental pain has gotten worse. She states she has had fever but hasn't taken her temperature, she is also experiencing night sweats. She has been taking Advil but has had little relief. She states she "can't go to [place] because she doesn't have the money to pay for another visit." She is requesting something for pain because she can't eat or drink because of the pain. She is crying, upset and doesn't want a dental block. Onset: Today Onset Date: 01/17/19 Onset Time: 09:00 Duration: Getting Worse Location: Reports: Face Quality: Reports: Ache, Throbbing Severity: Mild Improves with: Reports: None Worsens with: Reports: Eating Associated Symptoms: Reports: Fever/Chills. Denies: Headaches, Nausea/Vomiting Bilateral Tooth/Teeth Pain Score (Numeric/FACES): 10 - Related Data Allergies Allergy/AdvReac Type Severity Reaction Status Date / Time Latex, Natural Rubber Allergy Rash Verified 01/20/19 12:16 Penicillins Allergy Airway Verified 01/20/19 12:16 Tightness hydromorphone [From Dilaudid] AdvReac Vomiting Verified 01/20/19 12:16 Home Meds: Home Meds Levothyroxine 137 mcg PO ACBREAKFAST 06/04/17 [History] Estradiol [Estrace] 1 mg PO DAILY 10/15/18 [History] Hydrocodone/Acetaminophen [[place] 5-325 Tablet] 1 each PO Q6HR PRN 3 Days #8 tablet 01/20/19 [Rx] Past Medical History HEENT History: Reports: Impaired Vision, Other (See Below) Other HEENT History: glasses, dental issues. 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 History: Reports: Other (See Below) Other 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 History: left leg reconstructive surgery Neurological History: Reports: Migraines Psychiatric History: Reports: Anxiety Endocrine/Metabolic History: Reports: Hyperthyroidism, Other (See Below) Other Endocrine/Metabolic History: 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 problems Hematologic History: Reports: Blood Transfusion(s) Oncologic (Cancer) History: Reports: Cervix - Infectious Disease History Infectious Disease History: Reports: Chicken Pox - Past Surgical History Female Surgical History: Reports: Section, Hysterectomy Other Female Surgeries/Procedures: radical hyst for 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;. uterus removed, tubes removed, lymph nodes removed, and top of vaginal removed Endocrine Surgical History: Reports: Thyroidectomy Other Oncologic Surgeries/Procedures: TV 07/23/2018 Social & Family History - Family History Family Medical History: Noncontributory - Tobacco Use Smoking Status *Q: Former Smoker Used Tobacco, but Quit: No - Caffeine Use Caffeine Use: Reports: Coffee Other Caffeine Use: soda occassionally - Recreational Drug Use Recreational Drug Use: No - Living Situation & Occupation Living situation: Reports: Occupation: Employed ED ROS ENT - Review of Systems Review Of Systems: See Below Constitutional: Reports: Fever, Chills HEENT: Reports: Dental Pain Respiratory: Denies: Shortness of Breath Cardiovascular: Denies: Chest Pain Endocrine: Reports: Fatigue GI/Abdominal: Reports: No Symptoms : Reports: No Symptoms 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: Reports: No Symptoms Skin: Reports: No Symptoms Neurological: Reports: Headache Psychiatric: Reports: No Symptoms Hematologic/Lymphatic: Reports: No Symptoms Immunologic: Reports: No Symptoms ED EXAM, ENT - Physical Exam Exam: See Below General Appearance: Alert, WD/WN, No Apparent Distress Mouth/Throat: Dental Pain, Dental Tenderness, Gum Swelling. No: Throat Pain Neck: Normal Inspection, Supple, Non-Tender, Full Range of Motion Neurological: Alert, Oriented, Normal Cognition, Normal Gait, Normal Reflexes, No Motor/Sensory Deficits Psychiatric: Normal Affect, Normal Mood Skin: Warm, Dry, Intact, Normal Color, No Rash Lymphatic: No Adenopathy Course - Vital Signs Last Recorded V/S: Last Vital Signs Temp 98.1 F 01/20/19 12:15 Pulse 89 01/20/19 12:15 Resp 18 01/20/19 12:15 BP 165/94 H 01/20/19 12:15 Pulse Ox 97 01/20/19 12:15 - Re-Assessments/Exams Free Text/Narrative Re-Assessment/Exam: 01/20/19 13:08 She is refusing dental block. 01/20/19 13:09 43 y/o female presents to ER with cc dental pain that is worse over the past 3 days. Her examination is consistent with gingivitis. I will discharge with Clindamycin for outpatient antibiotic therapy. I will give a small amount of [place] for dental pain. I instructed her not to take the medication and drink, drive or operate machinery while taking this medication. Instructed to follow up with dentist as prescribed. She verbalized understanding and is comfortable with plan for discharge. She is stable at time of discharge. Departure - Departure Time of Disposition: 13:12 Disposition: Home, Self-Care 01 Condition: Good Clinical Impression: Dental caries, Gingivitis - Discharge Information Prescriptions: Hydrocodone/Acetaminophen [[place] 5-325 Tablet] 1 each PO Q6HR PRN 3 Days #8 tablet PRN Reason: dental pain Referrals: PCP,None [Primary Care Provider] - Additional Instructions: You have been diagnosis with gingivitis and dental decay. You have been prescribed Clindamycin for outpatient antibiotic therapy. Take [place] for pain, do not take this medication and drink, drive or operate machinery. Follow up with the dentist as scheduled. Return to the ER for any new or acute worsen symptoms.
[2019-01-20 13:43] VITALS: BP 146/95
== END 2019-01-20 13:40 | disposition home or self-care (01) ==
LOC: JD.ED 12:05
DX: K02.9 Dental caries, unspecified (principal); K05.10 Chronic gingivitis, plaque induced; F41.9 Anxiety disorder, unspecified; Z79.899 Other long term (current) drug therapy; Z88.6 Allergy status to analgesic agent; Z88.0 Allergy status to penicillin; Z91.040 Latex allergy status; Z87.891 Personal history of nicotine dependence
CPT/HCPCS: 99282; 99283

== ENCOUNTER 2019-06-22 07:34 | Emergency (ER) | payer OTHER ==
[2019-06-22 07:52] VITALS: BP 132/83; PULSE 78
[2019-06-22] MEDS ORDERED: Ketorolac 30 MG/ML SDV IM ONE (08:14)
--- NOTE | 2019-06-22 08:59 | CR ---
Right knee: Four views of the right knee were obtained. Comparison: No prior right knee exam. Medial and lateral joint compartments are maintained in height. No joint effusion is seen. No fracture or other bony abnormality is identified. Impression: 1. Nothing acute is appreciated on right knee exam. Diagnostic code #1
--- NOTE | 2019-06-22 09:40 | EDM.PDOC ---
ED HPI GENERAL MEDICAL PROBLEM - General Chief Complaint: Lower Extremity Injury/Pain Stated Complaint: RT KNEE PAIN Time Seen by Provider: 06/22/19 08:04 Source of Information: Reports: Patient, Fdc Records, RN Notes Reviewed - History of Present Illness INITIAL COMMENTS - FREE TEXT/NARRATIVE: 44-year-old female has been having some discomfort with her knee intermittently since an injury a month or so ago. Her running her dog crashed into her striking the back and lateral aspect right knee. It felt like it "buckled on her and now she has quite severe discomfort lateral aspect of knee with standing and walking. No other pain or injury. Right Knee Pain Score (Numeric/FACES): 8 - Related Data Allergies Allergy/AdvReac Type Severity Reaction Status Date / Time Latex, Natural Rubber Allergy Rash Verified 06/22/19 07:52 Penicillins Allergy Airway Verified 06/22/19 07:52 Tightness hydromorphone [From Dilaudid] AdvReac Vomiting Verified 06/22/19 07:52 Home Meds: Home Meds Levothyroxine 137 mcg PO ACBREAKFAST 06/04/17 [History] Estradiol [Estrace] 1 mg PO DAILY 10/15/18 [History] Past Medical History HEENT History: Reports: Impaired Vision, Other (See Below) Other HEENT History: glasses, dental issues. 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 History: Reports: Other (See Below) Other 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 History: left leg reconstructive surgery Neurological History: Reports: Migraines Psychiatric History: Reports: Anxiety Endocrine/Metabolic History: Reports: Hyperthyroidism, Other (See Below) Other Endocrine/Metabolic History: 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 problems Hematologic History: Reports: Blood Transfusion(s) Oncologic (Cancer) History: Reports: Cervix - Infectious Disease History Infectious Disease History: Reports: Chicken Pox - Past Surgical History Female Surgical History: Reports: Section, Hysterectomy Other Female Surgeries/Procedures: radical hyst for 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;. uterus removed, tubes removed, lymph nodes removed, and top of vaginal removed Endocrine Surgical History: Reports: Thyroidectomy Other Oncologic Surgeries/Procedures: TV 07/23/2018 Social & Family History - Family History Family Medical History: Noncontributory - Tobacco Use Smoking Status *Q: Former Smoker Used Tobacco, but Quit: Yes Month/Year Tobacco Last Used: 10/2018 - Caffeine Use Caffeine Use: Reports: Coffee Other Caffeine Use: soda occassionally - Recreational Drug Use Recreational Drug Use: No - Living Situation & Occupation Living situation: Reports: Occupation: Employed Review of Systems - Review of Systems Review Of Systems: See Below Constitutional: Reports: No Symptoms Mouth/Throat: Reports: No Symptoms Respiratory: Denies: Shortness of Breath Cardiovascular: Denies: Chest Pain GI/Abdominal: Denies: Abdominal Pain 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: Reports: Joint Pain ( L knee) Skin: Reports: No Symptoms Neurological: Reports: No Symptoms ED EXAM, GENERAL - Physical Exam Exam: See Below General Appearance: Alert, No Apparent Distress Head: Atraumatic Neck: Supple Respiratory/Chest: No Respiratory Distress Cardiovascular: Regular Rate, Rhythm Extremities: Other (there is mild tenderness lateral and medial L knee, no visible swelling, no effusion, mild pain with motion, joint is stable). No: Pedal Edema, Joint Swelling, Leg Pain Course - Vital Signs Last Recorded V/S: Last Vital Signs Temp 97.4 F 06/22/19 07:49 Pulse 78 06/22/19 07:49 Resp 16 06/22/19 07:49 BP 132/83 06/22/19 07:49 Pulse Ox 99 06/22/19 07:49 - Orders/Labs/Meds Meds: Medications Discontinued Medications Generic Name Dose Route Start Last Admin Trade Name Freq PRN Reason Stop Dose Admin Ketorolac Tromethamine 30 mg 06/22/19 08:14 06/22/19 08:55 Toradol IM 06/22/19 08:15 30 mg ONETIME ONE Administration - Re-Assessments/Exams Free Text/Narrative Re-Assessment/Exam: 06/28/19 17:48 no fx, discharge instr. as documented. Departure - Departure Time of Disposition: 09:35 Disposition: Home, Self-Care 01 Condition: Fair Clinical Impression: Knee sprain Qualifiers: Encounter type: initial encounter Involved ligament of knee: lateral collateral ligament Laterality: right Qualified Code(s): S83.421A - Sprain of lateral collateral ligament of right knee, initial encounter - Discharge Information Instructions: Knee Sprain, Adult, [id number] Referrals: Erika Xiong PA-C [Primary Care Provider] - Forms: ED Department Discharge, ED Return to Work/School Form Additional Instructions: Kedar wrap right knee, crutches, ice packs and elevation for swelling, Tylenol every 6-8 hours as needed. Follow up with your regular medical provider if not getting back to normal within 4-5 days as expected.
== END 2019-06-22 09:41 | disposition home or self-care (01) ==
LOC: JD.ED 07:34
DX: S83.421A Sprain of lateral collateral ligament of right knee, initial encounter (principal); E05.90 Thyrotoxicosis, unspecified without thyrotoxic crisis or storm; Z87.891 Personal history of nicotine dependence; Z88.0 Allergy status to penicillin; Z88.5 Allergy status to narcotic agent; Z91.040 Latex allergy status; Z79.899 Other long term (current) drug therapy; W54.1XXA Struck by dog, initial encounter
CPT/HCPCS: 73564; 96372; 99283; J1885

== ENCOUNTER 2019-08-09 13:01 | Emergency (ER) | payer OTHER ==
[2019-08-09] MEDS ORDERED: Sodium Chloride 0.9% 10 ML Syringe FLUSH PRN (13:16)
[2019-08-09] MEDS ORDERED: Morphine 4 MG/ML Syringe IVPUSH ONE ×2 (13:16→14:42)
[2019-08-09] MEDS ORDERED: Ondansetron 4 MG/2 ML SDV IVPUSH ONE (13:16)
[2019-08-09 13:19] VITALS: BP 153/97; PULSE 90
--- NOTE | 2019-08-09 13:25 | EDM.PDOC ---
ED HPI GENERAL MEDICAL PROBLEM - General Chief Complaint: Abdominal Pain Stated Complaint: L SIDE ABD PAIN Time Seen by Provider: 08/09/19 13:10 Source of Information: Reports: Patient History Limitations: Reports: No Limitations - History of Present Illness INITIAL COMMENTS - FREE TEXT/NARRATIVE: Patient's unfortunate 44-year-old female who presents to emergency Department today with complaint of left flank and left lower quadrant abdominal pain. Patient reports that symptoms started 1 week ago and progressively worsened since. Patient course that yesterday she noticed blood when she voided became concerned when she continued to have pain?presented in the emergency department for evaluation. Pain is been present despite taking Tylenol at home. Patient has history of 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 with radical hysterectomy and bilateral nephrectomy. Patient is on radiation therapy last radiation therapy was in August of last year. Patient reports she has follow-up with her oncologist next month in [place]. No fever, no chills, no vomiting, no shortness of breath Left Lower Abdomen Pain Score (Numeric/FACES): 10 - Related Data Allergies Allergy/AdvReac Type Severity Reaction Status Date / Time Latex, Natural Rubber Allergy Rash Verified 08/09/19 13:18 Penicillins Allergy Airway Verified 08/09/19 13:18 Tightness hydromorphone [From Dilaudid] AdvReac Vomiting Verified 08/09/19 13:18 Home Meds: Home Meds Levothyroxine 137 mcg PO ACBREAKFAST 06/04/17 [History] Estradiol [Estrace] 1 mg PO DAILY 10/15/18 [History] Acetaminophen/Codeine [Tylenol with Codeine No.3 300MG/30MG] 1 tab PO Q4H PRN # 12 tab 08/09/19 [Rx] Past Medical History HEENT History: Reports: Impaired Vision, Other (See Below) Other HEENT History: glasses, dental issues. 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 History: Reports: Other (See Below) Other 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 History: left leg reconstructive surgery Neurological History: Reports: Migraines Psychiatric History: Reports: Anxiety Endocrine/Metabolic History: Reports: Hyperthyroidism, Other (See Below) Other Endocrine/Metabolic History: 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 problems Hematologic History: Reports: Blood Transfusion(s) Oncologic (Cancer) History: Reports: Cervix - Infectious Disease History Infectious Disease History: Reports: Chicken Pox - Past Surgical History Female Surgical History: Reports: Section, Hysterectomy Other Female Surgeries/Procedures: radical hyst for 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;. uterus removed, tubes removed, lymph nodes removed, and top of vaginal removed Endocrine Surgical History: Reports: Thyroidectomy Other Oncologic Surgeries/Procedures: TVH 07/23/2018 Social & Family History - Family History Family Medical History: Noncontributory - Caffeine Use Caffeine Use: Reports: Coffee Other Caffeine Use: soda occassionally - Living Situation & Occupation Living situation: Reports: Occupation: Employed ED ROS GENERAL - Review of Systems Review Of Systems: See Below Constitutional: Denies: Fever, Chills HEENT: Reports: No Symptoms Respiratory: Reports: No Symptoms Cardiovascular: Reports: No Symptoms Endocrine: Reports: No Symptoms GI/Abdominal: Reports: Abdominal Pain, Other (Positive flank pain) : Reports: Hematuria 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: Reports: No Symptoms Skin: Reports: No Symptoms Neurological: Reports: No Symptoms Psychiatric: Reports: No Symptoms Hematologic/Lymphatic: Reports: No Symptoms Immunologic: Reports: No Symptoms ED EXAM, GI/ABD - Physical Exam Exam: See Below Exam Limited By: No Limitations General Appearance: Alert, WD/WN, Moderate Distress Throat/Mouth: Normal Inspection, Normal Lips, Normal Teeth, Normal Gums, Normal Oropharynx, Normal Voice, No Airway Compromise Head: Atraumatic, Normocephalic Neck: Normal Inspection, Supple, Non-Tender, Full Range of Motion Respiratory/Chest: No Respiratory Distress, Lungs Clear, Normal Breath Sounds, No Accessory Muscle Use, Chest Non-Tender Cardiovascular: Normal Peripheral Pulses, Regular Rate, Rhythm, No Edema, No Gallop, No JVD, No Murmur, No Rub GI/Abdominal Exam: Normal Bowel Sounds, Soft, Tender (Eyes the left lower quadrant pain and tenderness to palpation) Back Exam: CVA Tenderness (L) Extremities: Normal Inspection, Normal Range of Motion, Non-Tender, Normal Capillary Refill, No Pedal Edema Neurological: Alert, Oriented, CN II-XII Intact, Normal Cognition, Normal Gait, Normal Reflexes, No Motor/Sensory Deficits Skin Exam: Warm, Dry, Intact, Normal Color, No Rash Lymphatic: No Adenopathy Course - Vital Signs Last Recorded V/S: Last Vital Signs Temp 97.9 F 08/09/19 13:14 Pulse 90 08/09/19 13:14 Resp 18 08/09/19 13:14 BP 153/97 H 08/09/19 13:14 Pulse Ox 97 08/09/19 13:14 - Orders/Labs/Meds Orders: Active Orders 24 hr Category Date Time Status UA RFX DILLON AND CULT IF INDIC [URIN] Stat Lab 08/09/19 13:16 Ordered UA W/MICROSCOPIC [URIN] Stat Lab 08/09/19 13:16 Ordered Sodium Chloride 0.9% [Saline Flush] Med 08/09/19 13:16 Active 10 ml FLUSH ASDIRECTED PRN Saline Lock Insert [OM.PC] Stat Oth 08/09/19 13:16 Ordered Medication Orders Sodium Chloride (Saline Flush) 10 ml FLUSH ASDIRECTED PRN PRN Reason: Keep Vein Open Last Admin: 08/09/19 14:21 Dose: 10 ml Labs: Laboratory Tests 08/09/19 08/09/19 08/09/19 Range/Units 13:16 13:44 13:44 WBC 5.76 (3.98-10.04) K/mm3 RBC 4.52 (3.98-5.22) M/mm3 Hgb 14.0 (11.2-15.7) gm/dl Hct 41.4 (34.1-44.9) % MCV 91.6 D (79.4-94.8) fl MCH 31.0 (25.6-32.2) pg MCHC 33.8 (32.2-35.5) g/dl RDW Std Deviation 40.9 (36.4-46.3) fL Plt Count 258 (182-369) K/mm3 MPV 9.1 L (9.4-12.3) fl Neut % (Auto) 65.9 (34.0-71.1) % Lymph % (Auto) 25.2 (19.3-51.7) % [place] % (Auto) 6.8 (4.7-12.5) % Eos % (Auto) 1.6 (0.7-5.8) Baso % (Auto) 0.3 (0.1-1.2) % Neut # (Auto) 3.80 (1.56-6.13) K/mm3 Lymph # (Auto) 1.45 (1.18-3.74) K/mm3 [place] # (Auto) 0.39 H (0.24-0.36) K/mm3 Eos # (Auto) 0.09 (0.04-0.36) K/mm3 Baso # (Auto) 0.02 (0.01-0.08) K/mm3 Sodium 147 H (136-145) mEq/L Potassium 3.6 (3.5-5.1) mEq/L Chloride 109 H (98-107) mEq/L Carbon Dioxide 28 (21-32) mEq/L Anion Gap 13.6 (5-15) BUN 12 (7-18) mg/dL Creatinine 0.9 (0.55-1.02) mg/dL Est Cr Clr Drug Dosing 80.26 mL/min Estimated GFR (MDRD) > 60 (>60) mL/min BUN/Creatinine Ratio 13.3 L (14-18) Glucose 95 (74-106) mg/dL Calcium 9.2 (8.5-10.1) mg/dL Total Bilirubin 0.4 (0.2-1.0) mg/dL AST 14 L (15-37) U/L ALT 18 (14-59) U/L Alkaline Phosphatase 84 (46-116) U/L Total Protein 7.5 (6.4-8.2) g/dl Albumin 3.9 (3.4-5.0) g/dl Globulin 3.6 gm/dL Albumin/Globulin Ratio 1.1 (1-2) Urine Color Yellow (Yellow) Urine Appearance Clear (Clear) Urine pH 7.0 (5.0-8.0) Ur Specific [place] 1.020 (1.005-1.030) Urine Protein Negative (Negative) Urine Glucose (UA) Negative (Negative) Urine Ketones Negative (Negative) Urine Occult Blood 1+ H (Negative) Urine Nitrite Negative (Negative) Urine Bilirubin Negative (Negative) Urine Urobilinogen 0.2 (0.2-1.0) Ur Leukocyte Esterase Negative (Negative) Meds: Medications Generic Name Dose Route Start Last Admin Trade Name Freq PRN Reason Stop Dose Admin Sodium Chloride 10 ml 08/09/19 13:16 08/09/19 14:21 Saline Flush FLUSH 10 ml ASDIRECTED PRN Administration Keep Vein Open Discontinued Medications Generic Name Dose Route Start Last Admin Trade Name Freq PRN Reason Stop Dose Admin Fentanyl 25 mcg 08/09/19 13:26 08/09/19 13:35 Sublimaze IVPUSH 08/09/19 13:27 Not Given ONETIME ONE Fentanyl Confirm 08/09/19 13:28 08/09/19 13:32 Sublimaze Administered 08/09/19 13:29 Not Given Dose 100 mcg .ROUTE .STK-MED ONE Fentanyl 25 mcg 08/09/19 13:31 08/09/19 13:43 Sublimaze IVPUSH 08/09/19 13:32 25 mcg ONETIME ONE Administration Morphine Sulfate 4 mg 08/09/19 13:16 08/09/19 13:27 Morphine IVPUSH 08/09/19 13:17 Not Given ONETIME ONE Morphine Sulfate 4 mg 08/09/19 14:42 08/09/19 14:47 Morphine IVPUSH 08/09/19 14:43 4 mg ONETIME ONE Administration Ondansetron HCl 4 mg 08/09/19 13:16 08/09/19 13:55 Zofran IVPUSH 08/09/19 13:17 4 mg ONETIME ONE Administration - Radiology Interpretation Free Text/Narrative:: CT abdomen and pelvis "impression: #1 no renal calculi, ureteral dilatation or discrete urinary stone is seen. #2 mild increased stool throughout the colon. # 3 nothing acute is otherwise seen on noncontrasted CT study of abdomen and pelvis. Other incidental findings as noted above." - Re-Assessments/Exams Free Text/Narrative Re-Assessment/Exam: 08/09/19 15:14 She reports pain is improved, lab work shows no significant clinical abnormalities CT shows no acute process, we'll discharge home and outpatient follow-up with PCP in oncology. Departure - Departure Time of Disposition: 15:15 Disposition: Home, Self-Care 01 Clinical Impression: Left lower quadrant pain Hematuria Qualifiers: Hematuria type: unspecified type Qualified Code(s): R31.9 - Hematuria, unspecified - Discharge Information *PRESCRIPTION DRUG MONITORING PROGRAM REVIEWED*: Yes *COPY OF PRESCRIPTION DRUG MONITORING REPORT IN PATIENT [place]: No Prescriptions: Acetaminophen/Codeine [Tylenol with Codeine No.3 300MG/30MG] 1 tab PO Q4H PRN # 12 tab PRN Reason: Pain Referrals: Erika Xiong PA-C [Primary Care Provider] - Forms: ED Department Discharge Additional Instructions: Home, rest, 1 teaspoon Metamucil daily, you need to follow up with the urologist in the next week for your microscopic hematuria, follow-up with your oncologist next week, return as needed for worsening condition - My Orders Last 24 Hours: My Active Orders 08/09/19 13:16 UA RFX DILLON AND CULT IF INDIC [URIN] Stat UA W/MICROSCOPIC [URIN] Stat Sodium Chloride 0.9% [Saline Flush] 10 ml FLUSH ASDIRECTED PRN Saline Lock Insert [OM.PC] Stat - Assessment/Plan Last 24 Hours: My Active Orders 08/09/19 13:16 UA RFX DILLON AND CULT IF INDIC [URIN] Stat UA W/MICROSCOPIC [URIN] Stat Sodium Chloride 0.9% [Saline Flush] 10 ml FLUSH ASDIRECTED PRN Saline Lock Insert [OM.PC] Stat
[2019-08-09] MEDS ORDERED: fentaNYL 250 MCG/5 ML SDV IVPUSH ONE (13:26)
[2019-08-09] MEDS ORDERED: fentaNYL 100 MCG/2 ML SDV ONE (13:28)
[2019-08-09] MEDS ORDERED: fentaNYL 100 MCG/2 ML SDV IVPUSH ONE (13:31)
--- NOTE | 2019-08-09 14:30 | CT ---
CT abdomen and pelvis Technique: Multiple axial sections were obtained from above the dome of the diaphragm inferiorly through the pubic symphysis. Intravenous and oral contrast not utilized. Study has been performed as a ureteral stone protocol. Comparison: Prior CT abdomen and pelvis study of 10/15/18. Findings: No ureteral dilatation is seen. Kidneys show no abnormal calcifications. No ureteral calcification is appreciated. Visualized lung bases show nothing acute. Noncontrast appearance of the liver and spleen shows no discrete abnormality. Gallbladder is mostly contracted and shows no calcified gallstones. Adrenal glands show no nodule. Pancreas shows no discrete abnormality. Aorta shows atherosclerotic calcification without aneurysm. No retroperitoneal adenopathy or mesenteric abnormalities are seen. No pelvic mass or adenopathy is seen. Artifact noted from the left hip pin. Multiple surgical clips are seen within the pelvis. No free fluid or inflammatory change is seen. Appendix not visualized with certainty. Bone window settings were reviewed which show severe disc space narrowing at L5-S1 with vacuum phenomena. Mild increased stool throughout the colon is seen. Impression: 1. No renal calculi, ureteral dilatation or discrete ureteral stone is seen. 2. Mild increased stool throughout the colon. 3. Nothing acute is otherwise seen on noncontrast CT study of the abdomen and pelvis. Other incidental findings as noted above. Diagnostic code #2
== END 2019-08-09 15:30 | disposition home or self-care (01) ==
LOC: JD.ED 13:01
DX: R10.32 Left lower quadrant pain (principal); R31.9 Hematuria, unspecified; E05.90 Thyrotoxicosis, unspecified without thyrotoxic crisis or storm; Z90.710 Acquired absence of both cervix and uterus; Z90.5 Acquired absence of kidney; Z91.040 Latex allergy status; Z88.0 Allergy status to penicillin; Z88.6 Allergy status to analgesic agent; Z79.899 Other long term (current) drug therapy
CPT/HCPCS: 36415; 74176; 80053; 81001; 85025; 96374; 96375; 99284; J2270; J2405; J3010

== ENCOUNTER 2019-10-24 08:41 | Emergency (ER) | payer OTHER ==
[2019-10-24 08:59] VITALS: BP 173/92; PULSE 55
[2019-10-24] MEDS ORDERED: Sodium Chloride 0.9% 10 ML Syringe FLUSH PRN (09:59)
--- NOTE | 2019-10-24 10:43 | CR ---
Chest: PA and lateral views of the chest were obtained. Comparison: Prior chest x-ray of 06/05/16. Heart size and mediastinum are normal. Lungs are clear. Mild scoliosis is noted within the spine. Impression: 1. Nothing acute is appreciated on two-view chest x-ray. Diagnostic code #1 This report was dictated in [place] Standard Time
--- NOTE | 2019-10-24 12:06 | EDM.PDOC ---
ED HPI GENERAL MEDICAL PROBLEM - General Chief Complaint: General Stated Complaint: LIGHTHEADED AND RAPID HEART RATE Time Seen by Provider: 10/24/19 09:54 Source of Information: Reports: Patient, RN Notes Reviewed History Limitations: Reports: No Limitations - History of Present Illness INITIAL COMMENTS - FREE TEXT/NARRATIVE: Patient is a 44-year-old female who presents to the ED for the evaluation of some generalized feelings of being unwell. Patient states that for the last week or so, she has been feeling some chest pressure, feelings as if she cannot take a deep breath, feeling lightheaded almost as if she would pass out, but has not passed out. She also reports feelings of generalized bloating, and states that her legs seem to be more swollen than they normally are. She states she has a history of migraines as well and has a headache, but she is not complaining any fevers, chills, nausea or vomiting or diarrhea. Patient notes that she is having some lower abdominal tenderness, otherwise she is not having pain elsewhere. She denies any dysuria, urinary frequency or urgency, she states that when she woke up this morning, she was extremely thirsty, so she drank quite a bit of water. But she states nothing seems to really make her feel better, but also cannot attest anything that makes her feel worse. Headache Pain Score (Numeric/FACES): 7 Chest Pain Score (Numeric/FACES): 4 - Related Data Allergies Allergy/AdvReac Type Severity Reaction Status Date / Time Latex, Natural Rubber Allergy Rash Verified 10/24/19 08:58 Penicillins Allergy Airway Verified 10/24/19 08:58 Tightness hydromorphone [From Dilaudid] AdvReac Vomiting Verified 10/24/19 08:58 Home Meds: Home Meds Levothyroxine 137 mcg PO ACBREAKFAST 06/04/17 [History] Estradiol [Estrace] 1 mg PO DAILY 10/15/18 [History] Metoclopramide HCl [Reglan] 10 mg PO Q6H PRN #30 tablet 08/19/19 [Rx] Past Medical History HEENT History: Reports: Impaired Vision, Other (See Below) Other HEENT History: glasses, dental issues. Gastrointestinal History: Reports: Chronic Diarrhea DATA MIGRATION LEAD History: Reports: Other DATA MIGRATION LEAD History: hyst. 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 History: Reports: Other (See Below) Other 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 History: left leg reconstructive surgery Neurological History: Reports: Migraines Psychiatric History: Reports: Anxiety Endocrine/Metabolic History: Reports: Hyperthyroidism, Other (See Below) Other Endocrine/Metabolic History: 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 problems Hematologic History: Reports: Blood Transfusion(s) Oncologic (Cancer) History: Reports: Cervix - Infectious Disease History Infectious Disease History: Reports: Chicken Pox - Past Surgical History Female Surgical History: Reports: Section, Hysterectomy Other Female Surgeries/Procedures: radical hyst for 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;. uterus removed, tubes removed, lymph nodes removed, and top of vaginal removed Endocrine Surgical History: Reports: Thyroidectomy Other Oncologic Surgeries/Procedures: [facility] 07/23/2018 Social & Family History - Family History Family Medical History: Noncontributory - Tobacco Use Smoking Status *Q: Former Smoker Used Tobacco, but Quit: Yes Month/Year Tobacco Last Used: 2017 - Caffeine Use Caffeine Use: Reports: Coffee, Soda Other Caffeine Use: soda occassionally - Recreational Drug Use Recreational Drug Use: No - Living Situation & Occupation Living situation: Reports: Occupation: Employed ED ROS GENERAL - Review of Systems Review Of Systems: See Below Constitutional: Denies: Fever, Chills Respiratory: Denies: Shortness of Breath Cardiovascular: Denies: Chest Pain GI/Abdominal: Reports: Abdominal Pain (lower abdominal ). Denies: Constipation , Diarrhea, Nausea, Vomiting : Denies: Dysuria, Frequency, Urgency Neurological: Reports: Headache ED EXAM, GENERAL - Physical Exam Exam: See Below Exam Limited By: No Limitations General Appearance: Alert, WD/WN, No Apparent Distress (pt has some generalized pallor, and appears to not be feeling well) Eye Exam: Bilateral Eye: EOMI, Normal Inspection, PERRL Throat/Mouth: Normal Inspection, Normal Lips, Normal Teeth, Normal Gums, Normal Oropharynx, Normal Voice, No Airway Compromise Head: Atraumatic, Normocephalic Neck: Normal Inspection Respiratory/Chest: No Respiratory Distress, Lungs Clear, Normal Breath Sounds, No Accessory Muscle Use, Chest Non-Tender Cardiovascular: Normal Peripheral Pulses, Regular Rate, Rhythm, No Murmur, Other (mild peripheral edema to L lower leg. this is 1+, likely d/t dependent edema) Peripheral Pulses: 3+: Radial (L), Radial (R), Dorsalis Pedis (L), Dorsalis Pedis (R) GI/Abdominal: Normal Bowel Sounds, Soft, No Distention, No Mass, Tender ( suprapubically) Extremities: Normal Inspection, Normal Capillary Refill Neurological: Alert, Oriented, Normal Cognition, No Motor/Sensory Deficits Psychiatric: Normal Affect, Normal Mood Skin Exam: Warm, Dry, Intact, No Rash, Pallor (generalized) EKG INTERPRETATION EKG Date: 10/24/19 Time: 10:16 Rhythm: NSR Rate (Beats/Min): 52 [place]: Normal P-Wave: Present QRS: Normal ST-T: Normal QT: Normal Comparison: NA - No Prior EKG EKG Interpretation Comments: No acute ischemic changes noted, reviewed by myself and Dr. Bobby Course - Vital Signs Last Recorded V/S: Last Vital Signs Temp 97.6 F 10/24/19 08:55 Pulse 55 L 10/24/19 08:55 Resp 16 10/24/19 08:55 BP 173/92 H 10/24/19 08:55 Pulse Ox 100 10/24/19 08:55 - Orders/Labs/Meds Orders: Active Orders 24 hr Category Date Time Status EKG Documentation Completion [RC] STAT Care 10/24/19 09:59 Ordered Peripheral IV Care [RC] . DIRECTED Care 10/24/19 09:59 Ordered D-DIMER QUANTITATIVE [COAG] Stat Lab 10/24/19 13:57 Ordered Sodium Chloride 0.9% [Saline Flush] Med 10/24/19 09:59 Ordered 10 ml FLUSH ASDIRECTED PRN Peripheral IV Insertion Adult [OM.PC] Stat Oth 10/24/19 09:59 Ordered Medication Orders Sodium Chloride (Saline Flush) 10 ml FLUSH ASDIRECTED PRN PRN Reason: Keep Vein Open Labs: Laboratory Tests 10/24/19 10/24/19 10/24/19 Range/Units 09:59 11:01 11:01 WBC 5.76 (3.98-10.04) K/mm3 RBC 3.95 L (3.98-5.22) M/mm3 Hgb 12.2 D (11.2-15.7) gm/dl Hct 38.6 (34.1-44.9) % MCV 97.7 H D (79.4-94.8) fl MCH 30.9 (25.6-32.2) pg MCHC 31.6 L (32.2-35.5) g/dl RDW Std Deviation 43.0 (36.4-46.3) fL Plt Count 193 (182-369) K/mm3 MPV 9.3 L (9.4-12.3) fl Neutrophils % (Manual) 66 H (40-60) % Band Neutrophils % 0 (0-10) % Lymphocytes % (Manual) 25 (20-40) % Atypical Lymphs % 0 % Monocytes % (Manual) 5 (2-10) % Eosinophils % (Manual) 4 (0.7-5.8) % Basophils % (Manual) 0 L (0.1-1.2) Platelet Estimate Adequate RBC Morph Comment Normal PT 10.0 (9.7-12.0) SECONDS INR < 0.93 APTT 25 (22-31) SECONDS Sodium 143 (136-145) mEq/L Potassium 4.0 (3.5-5.1) mEq/L Chloride 108 H (98-107) mEq/L Carbon Dioxide 27 (21-32) mEq/L Anion Gap 12.0 (5-15) BUN 10 (7-18) mg/dL Creatinine 0.8 (0.55-1.02) mg/dL Est Cr Clr Drug Dosing 92.81 mL/min Estimated GFR (MDRD) > 60 (>60) mL/min BUN/Creatinine Ratio 12.5 L (14-18) Glucose 84 (74-106) mg/dL Calcium 8.6 (8.5-10.1) mg/dL Magnesium 2.1 (1.8-2.4) mg/dl Total Bilirubin 0.2 (0.2-1.0) mg/dL AST 48 H (15-37) U/L ALT 57 (14-59) U/L Alkaline Phosphatase 102 (46-116) U/L Troponin I < 0.017 (0.00-0.056) ng/mL NT-Pro-B Natriuret Pep (0-125) pg/mL Total Protein 6.5 (6.4-8.2) g/dl Albumin 3.3 L (3.4-5.0) g/dl Globulin 3.2 gm/dL Albumin/Globulin Ratio 1.0 (1-2) Urine Color (Yellow) Urine Appearance (Clear) Urine pH (5.0-8.0) Ur Specific [place] (1.005-1.030) Urine Protein (Negative) Urine Glucose (UA) (Negative) Urine Ketones (Negative) Urine Occult Blood (Negative) Urine Nitrite (Negative) Urine Bilirubin (Negative) Urine Urobilinogen (0.2-1.0) Ur Leukocyte Esterase (Negative) Urine RBC (0-5) /hpf Urine WBC (0-5) /hpf Ur Epithelial Cells (0-5) /hpf Urine Bacteria (FEW) /hpf Urine Mucus (FEW) /hpf 10/24/19 10/24/19 Range/Units 11:01 12:45 WBC (3.98-10.04) K/mm3 RBC (3.98-5.22) M/mm3 Hgb (11.2-15.7) gm/dl Hct (34.1-44.9) % MCV (79.4-94.8) fl MCH (25.6-32.2) pg MCHC (32.2-35.5) g/dl RDW Std Deviation (36.4-46.3) fL Plt Count (182-369) K/mm3 MPV (9.4-12.3) fl Neutrophils % (Manual) (40-60) % Band Neutrophils % (0-10) % Lymphocytes % (Manual) (20-40) % Atypical Lymphs % % Monocytes % (Manual) (2-10) % Eosinophils % (Manual) (0.7-5.8) % Basophils % (Manual) (0.1-1.2) Platelet Estimate RBC Morph Comment PT (9.7-12.0) SECONDS INR APTT (22-31) SECONDS Sodium (136-145) mEq/L Potassium (3.5-5.1) mEq/L Chloride (98-107) mEq/L Carbon Dioxide (21-32) mEq/L Anion Gap (5-15) BUN (7-18) mg/dL Creatinine (0.55-1.02) mg/dL Est Cr Clr Drug Dosing mL/min Estimated GFR (MDRD) (>60) mL/min BUN/Creatinine Ratio (14-18) Glucose (74-106) mg/dL Calcium (8.5-10.1) mg/dL Magnesium (1.8-2.4) mg/dl Total Bilirubin (0.2-1.0) mg/dL AST (15-37) U/L ALT (14-59) U/L Alkaline Phosphatase (46-116) U/L Troponin I (0.00-0.056) ng/mL NT-Pro-B Natriuret Pep 294 H (0-125) pg/mL Total Protein (6.4-8.2) g/dl Albumin (3.4-5.0) g/dl Globulin gm/dL Albumin/Globulin Ratio (1-2) Urine Color Yellow (Yellow) Urine Appearance Clear (Clear) Urine pH 7.5 (5.0-8.0) Ur Specific [place] 1.020 (1.005-1.030) Urine Protein Negative (Negative) Urine Glucose (UA) Negative (Negative) Urine Ketones Negative (Negative) Urine Occult Blood Trace-intact H (Negative) Urine Nitrite Negative (Negative) Urine Bilirubin Negative (Negative) Urine Urobilinogen 0.2 (0.2-1.0) Ur Leukocyte Esterase Negative (Negative) Urine RBC 0-5 (0-5) /hpf Urine WBC 0-5 (0-5) /hpf Ur Epithelial Cells 0-5 (0-5) /hpf Urine Bacteria Rare (FEW) /hpf Urine Mucus Not seen (FEW) /hpf Meds: Medications Generic Name Dose Route Start Last Admin Trade Name Freq PRN Reason Stop Dose Admin Sodium Chloride 10 ml 10/24/19 09:59 Saline Flush FLUSH ASDIRECTED PRN Keep Vein Open Discontinued Medications Generic Name Dose Route Start Last Admin Trade Name Freamy PRN Reason Stop Dose Admin Diphenhydramine HCl 25 mg 10/24/19 12:09 10/24/19 12:57 Benadryl IM 10/24/19 12:10 25 mg ONETIME ONE Administration Ketorolac Tromethamine 60 mg 10/24/19 12:10 10/24/19 12:56 Toradol IM 10/24/19 12:11 60 mg ONETIME ONE Administration Metoclopramide HCl 10 mg 10/24/19 12:09 10/24/19 12:56 Reglan IM 10/24/19 12:10 10 mg ONETIME ONE Administration - Re-Assessments/Exams Free Text/Narrative Re-Assessment/Exam: 10/24/19 12:12 She presents to the ED for multiple complaints. I did order some labs EKG and a chest x-ray for initial evaluation. The chest x-ray demonstrates no sign of any acute abnormalities, the EKG also appears to be within normal limits. Lab is still pending as they were having issues getting an IV placed and the patient. I did also order some medications for her headache as well, IM Benadryl, IM Toradol, and IM Reglan. 10/24/19 15:11 Labs have resulted, and demonstrate no focal acute abnormalities. I did order a d-dimer for further evaluation, however I was made aware from nursing staff that the patient left the ER before labs have been resulted. At this time it appears that she has eloped. Departure - Departure Time of Disposition: 15:11 Disposition: Eloped 07 Condition: Fair Clinical Impression: Bloating Headache Qualifiers: Headache type: tension-type Headache chronicity pattern: acute headache Intractability: not intractable Qualified Code(s): G44.209 - Tension-type headache, unspecified, not intractable - Discharge Information *PRESCRIPTION DRUG MONITORING PROGRAM REVIEWED*: No *COPY OF PRESCRIPTION DRUG MONITORING REPORT IN PATIENT [place]: No Referrals: Erika Xiong PA-C [Primary Care Provider] - Forms: ED Department Discharge Sepsis Event Note - Evaluation Sepsis Screening Result: No Definite Risk - Focused Exam Vital Signs: Vital Signs Temp Pulse Resp BP Pulse Ox 10/24/19 08:55 97.6 F 55 L 16 173/92 H 100 Date Exam was Performed: 10/24/19 Time Exam was Performed: 15:11 - My Orders Last 24 Hours: My Active Orders 10/24/19 09:59 EKG Documentation Completion [RC] STAT Peripheral IV Care [RC] . DIRECTED Sodium Chloride 0.9% [Saline Flush] 10 ml FLUSH ASDIRECTED PRN Peripheral IV Insertion Adult [OM.PC] Stat 10/24/19 13:57 D-DIMER QUANTITATIVE [COAG] Stat - Assessment/Plan Last 24 Hours: My Active Orders 10/24/19 09:59 EKG Documentation Completion [RC] STAT Peripheral IV Care [RC] . DIRECTED Sodium Chloride 0.9% [Saline Flush] 10 ml FLUSH ASDIRECTED PRN Peripheral IV Insertion Adult [OM.PC] Stat 10/24/19 13:57 D-DIMER QUANTITATIVE [COAG] Stat
[2019-10-24] MEDS ORDERED: diphenhydrAMINE 50 MG/ML SDV IM ONE (12:09)
[2019-10-24] MEDS ORDERED: Metoclopramide 10 MG/2 ML SDV IM ONE (12:09)
[2019-10-24] MEDS ORDERED: Ketorolac 60 MG/2 ML SDV IM ONE (12:10)
== END 2019-10-24 15:00 | disposition left against medical advice (07) ==
LOC: JD.ED 08:41
DX: G44.209 Tension-type headache, unspecified, not intractable (principal); R14.0 Abdominal distension (gaseous); Z88.5 Allergy status to narcotic agent; Z88.0 Allergy status to penicillin; Z91.040 Latex allergy status; Z87.891 Personal history of nicotine dependence
CPT/HCPCS: 36415; 71046; 80053; 81001; 83735; 83880; 84484; 85007; 85027; 85610; 85730; 93005; 96372; 99284; J1200; J1885; J2765; 93010

== ENCOUNTER 2019-11-02 16:03 | Emergency (ER) | payer OTHER ==
[2019-11-02 16:17] VITALS: BP 135/99; PULSE 69
--- NOTE | 2019-11-02 17:09 | EDM.PDOC ---
ED HPI GENERAL MEDICAL PROBLEM - General Chief Complaint: Cardiovascular Problem Stated Complaint: HIGH BP/IRREGULAR HEART BEAT Time Seen by Provider: 11/02/19 16:36 Source of Information: Reports: Patient History Limitations: Reports: No Limitations - History of Present Illness INITIAL COMMENTS - FREE TEXT/NARRATIVE: Patient is a 44-year-old female who presents to the ER with complaints of an elevated blood pressure, headache, and palpitations. Patient states the symptoms have been going on intermittently for the last week. She states last week she did have some fairly significant peripheral lower extremity edema as well as ascites, however she states this has improved. She still feels that she is bloated in the abdomen but her lower extremity edema did resolve. She feels like she is not able to take a full breath, however she does not feel that she is necessarily short of breath. Patient has no cardiac history. She has no history of hypertension. She does have a history of a thyroidectomy for which she is on levothyroxine 130 mcg. She states she is been on the same dose for 6 months and her levels have not been rechecked. She denies any upper respiratory symptoms such as cough, congestion, or fever. She has also had a total hysterectomy and oophorectomy. She is on estrogen replacement therapy. Headache Pain Score (Numeric/FACES): 9 - Related Data Allergies Allergy/AdvReac Type Severity Reaction Status Date / Time Latex, Natural Rubber Allergy Rash Verified 11/02/19 16:17 Penicillins Allergy Airway Verified 11/02/19 16:17 Tightness hydromorphone [From Dilaudid] AdvReac Vomiting Verified 11/02/19 16:17 Home Meds: Home Meds Levothyroxine 137 mcg PO ACBREAKFAST 06/04/17 [History] Estradiol [Estrace] 1 mg PO DAILY 10/15/18 [History] Metoclopramide HCl [Reglan] 10 mg PO Q6H PRN #30 tablet 08/19/19 [Rx] Levothyroxine 150 mcg PO ACBREAKFAST #30 tab 11/02/19 [Rx] Past Medical History HEENT History: Reports: Impaired Vision, Other (See Below) Other HEENT History: glasses, dental issues. 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 History: Reports: Other (See Below) Other 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 History: left leg reconstructive surgery Neurological History: Reports: Migraines Psychiatric History: Reports: Anxiety Endocrine/Metabolic History: Reports: Hyperthyroidism, Other (See Below) Other Endocrine/Metabolic History: 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 problems Hematologic History: Reports: Blood Transfusion(s) Immunologic History: Reports: None Oncologic (Cancer) History: Reports: Cervix Dermatologic History: Reports: None - Infectious Disease History Infectious Disease History: Reports: Chicken Pox - Past Surgical History Female Surgical History: Reports: Section, Hysterectomy, Salpingo- Oophorectomy Other Female Surgeries/Procedures: radical hyst for 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;. uterus removed, tubes removed, lymph nodes removed, and top of vaginal removed Endocrine Surgical History: Reports: Thyroidectomy Other Oncologic Surgeries/Procedures: [facility] 07/23/2018 Social & Family History - Family History Family Medical History: Noncontributory - Tobacco Use Smoking Status *Q: Never Smoker Second Hand Smoke Exposure: No - Caffeine Use Caffeine Use: Reports: Coffee, Soda, Tea Other Caffeine Use: soda occassionally - Recreational Drug Use Recreational Drug Use: No - Living Situation & Occupation Living situation: Reports: Occupation: Employed ED ROS GENERAL - Review of Systems Review Of Systems: Comprehensive ROS is negative, except as noted in HPI. ED EXAM, GENERAL - Physical Exam Exam: See Below Exam Limited By: No Limitations General Appearance: Alert, WD/WN, No Apparent Distress Eye Exam: Bilateral Eye: PERRL Throat/Mouth: Normal Inspection, Normal Lips, Normal Teeth, Normal Gums, Normal Oropharynx, Normal Voice, No Airway Compromise Respiratory/Chest: No Respiratory Distress, Lungs Clear, Normal Breath Sounds, No Accessory Muscle Use, Chest Non-Tender Cardiovascular: Normal Peripheral Pulses, Regular Rate, Rhythm, No Edema, No Gallop, No JVD, No Murmur, No Rub Neurological: Alert, Oriented, CN II-XII Intact, Normal Cognition, Normal Gait, Normal Reflexes, No Motor/Sensory Deficits Psychiatric: Normal Affect, Normal Mood Skin Exam: Warm, Dry, Intact, Normal Color, No Rash Course - Vital Signs Last Recorded V/S: Last Vital Signs Temp 97.2 F 11/02/19 16:13 Pulse 69 11/02/19 16:13 Resp 12 11/02/19 16:13 BP 135/99 H 11/02/19 16:13 Pulse Ox 99 11/02/19 16:13 - Orders/Labs/Meds Orders: Active Orders 24 hr Category Date Time Status EKG Documentation Completion [RC] ASDIRECTED Care 11/02/19 16:39 Active Chest 2V [CR] Stat Exams 11/02/19 16:49 Taken EKG 12 Lead [EK] Stat Ther 11/02/19 16:39 Ordered Labs: Laboratory Tests 11/02/19 11/02/19 11/02/19 Range/Units 17:08 17:08 17:08 WBC 6.22 (3.98-10.04) K/mm3 RBC 4.55 (3.98-5.22) M/mm3 Hgb 14.1 D (11.2-15.7) gm/dl Hct 42.9 (34.1-44.9) % MCV 94.3 D (79.4-94.8) fl MCH 31.0 (25.6-32.2) pg MCHC 32.9 (32.2-35.5) g/dl RDW Std Deviation 41.7 (36.4-46.3) fL Plt Count 298 D (182-369) K/mm3 MPV 8.8 L (9.4-12.3) fl Neut % (Auto) 61.7 (34.0-71.1) % Lymph % (Auto) 27.5 (19.3-51.7) % [place] % (Auto) 7.2 (4.7-12.5) % Eos % (Auto) 2.6 (0.7-5.8) Baso % (Auto) 0.8 (0.1-1.2) % Neut # (Auto) 3.84 (1.56-6.13) K/mm3 Lymph # (Auto) 1.71 (1.18-3.74) K/mm3 [place] # (Auto) 0.45 H (0.24-0.36) K/mm3 Eos # (Auto) 0.16 (0.04-0.36) K/mm3 Baso # (Auto) 0.05 (0.01-0.08) K/mm3 D-Dimer, Quantitative (0.19-0.50) mg/L Sodium 141 (136-145) mEq/L Potassium 3.5 (3.5-5.1) mEq/L Chloride 103 (98-107) mEq/L Carbon Dioxide 29 (21-32) mEq/L Anion Gap 12.5 (5-15) BUN 9 (7-18) mg/dL Creatinine 1.1 H (0.55-1.02) mg/dL Est Cr Clr Drug Dosing 67.50 mL/min Estimated GFR (MDRD) 54 (>60) mL/min BUN/Creatinine Ratio 8.2 L (14-18) Glucose 101 (74-106) mg/dL Calcium 9.5 (8.5-10.1) mg/dL Total Bilirubin 0.5 (0.2-1.0) mg/dL AST 21 (15-37) U/L ALT 37 (14-59) U/L Alkaline Phosphatase 95 (46-116) U/L Troponin I < 0.017 (0.00-0.056) ng/mL NT-Pro-B Natriuret Pep 43 (0-125) pg/mL Total Protein 7.7 (6.4-8.2) g/dl Albumin 4.1 (3.4-5.0) g/dl Globulin 3.6 gm/dL Albumin/Globulin Ratio 1.1 (1-2) TSH 3rd Generation 43.938 H (0.358-3.74) uIU/mL 11/02/19 Range/Units 17:08 WBC (3.98-10.04) K/mm3 RBC (3.98-5.22) M/mm3 Hgb (11.2-15.7) gm/dl Hct (34.1-44.9) % MCV (79.4-94.8) fl MCH (25.6-32.2) pg MCHC (32.2-35.5) g/dl RDW Std Deviation (36.4-46.3) fL Plt Count (182-369) K/mm3 MPV (9.4-12.3) fl Neut % (Auto) (34.0-71.1) % Lymph % (Auto) (19.3-51.7) % [place] % (Auto) (4.7-12.5) % Eos % (Auto) (0.7-5.8) Baso % (Auto) (0.1-1.2) % Neut # (Auto) (1.56-6.13) K/mm3 Lymph # (Auto) (1.18-3.74) K/mm3 [place] # (Auto) (0.24-0.36) K/mm3 Eos # (Auto) (0.04-0.36) K/mm3 Baso # (Auto) (0.01-0.08) K/mm3 D-Dimer, Quantitative 0.26 (0.19-0.50) mg/L Sodium (136-145) mEq/L Potassium (3.5-5.1) mEq/L Chloride (98-107) mEq/L Carbon Dioxide (21-32) mEq/L Anion Gap (5-15) BUN (7-18) mg/dL Creatinine (0.55-1.02) mg/dL Est Cr Clr Drug Dosing mL/min Estimated GFR (MDRD) (>60) mL/min BUN/Creatinine Ratio (14-18) Glucose (74-106) mg/dL Calcium (8.5-10.1) mg/dL Total Bilirubin (0.2-1.0) mg/dL AST (15-37) U/L ALT (14-59) U/L Alkaline Phosphatase (46-116) U/L Troponin I (0.00-0.056) ng/mL NT-Pro-B Natriuret Pep (0-125) pg/mL Total Protein (6.4-8.2) g/dl Albumin (3.4-5.0) g/dl Globulin gm/dL Albumin/Globulin Ratio (1-2) TSH 3rd Generation (0.358-3.74) uIU/mL - Re-Assessments/Exams Free Text/Narrative Re-Assessment/Exam: 11/02/19 18:13 Patient work-up was significant for creatinine of 1.1 and a TSH of 43.938. Troponin was negative, d-dimer was negative, chest x-ray was normal, and there were no acute changes on her EKG. We will adjust her levothyroxine to 150 mcg daily. I did recommend that she call her primary care as well as Dr. Gloria, who manages her thyroid medications to update on today's occurrences. Discharge instructions as noted. Departure - Departure Time of Disposition: 18:13 Disposition: Home, Self-Care Condition: Fair Clinical Impression: Hypothyroidism Qualifiers: Hypothyroidism type: unspecified Qualified Code(s): E03.9 - Hypothyroidism, unspecified Prescriptions: Levothyroxine 150 mcg PO ACBREAKFAST #30 tab Instructions: Hypothyroidism Referrals: Erika Xiong PA-C [Primary Care Provider] - Forms: ED Department Discharge, ED Return to Work/School Form Additional Instructions: You were seen in the emergency department today for headache, high blood pressure, and "not feeling". Work-up included blood work, an EKG of your heart , and a chest x-ray. Results of this work-up did show that you have a TSH level of 43.938. This is indicating that you are hypothyroid and that you are not getting enough of your levothyroxine. A prescription for levothyroxine 150 mcg has been sent to [facility]. Start make taking this medication daily tomorrow morning. I do recommend that you call and speak with Dr. Gloria as well as Erika Xiong to let them know today's occurrences and schedule a follow-up. If you should experience any worsening symptoms, please not hesitate to return to the emergency department. Sepsis Event Note - Evaluation Sepsis Screening Result: No Definite Risk - Focused Exam Vital Signs: Vital Signs Temp Pulse Resp BP Pulse Ox 11/02/19 16:13 97.2 F 69 12 135/99 H 99 Date Exam was Performed: 11/02/19 Time Exam was Performed: 22:29 - My Orders Last 24 Hours: My Active Orders 11/02/19 16:39 EKG Documentation Completion [RC] ASDIRECTED EKG 12 Lead [EK] Stat 11/02/19 16:49 Chest 2V [CR] Stat - Assessment/Plan Last 24 Hours: My Active Orders 11/02/19 16:39 EKG Documentation Completion [RC] ASDIRECTED EKG 12 Lead [EK] Stat 11/02/19 16:49 Chest 2V [CR] Stat
--- NOTE | 2019-11-03 07:28 | CR ---
Chest: Two views of the chest were obtained. Comparison: Prior chest x-ray of 10/24/19. Heart size and mediastinum are normal. Scoliosis is noted within the spine. Lungs are clear with no acute parenchymal change. Impression: 1. Findings as noted above. Nothing acute is seen. Diagnostic code #2 This report was dictated in [place] Standard Time
== END 2019-11-02 18:25 | disposition home or self-care (01) ==
LOC: JD.ED 16:03
DX: E03.9 Hypothyroidism, unspecified (principal); I10 Essential (primary) hypertension; Z91.040 Latex allergy status; Z88.0 Allergy status to penicillin; Z79.890 Hormone replacement therapy; Z79.899 Other long term (current) drug therapy; Z88.6 Allergy status to analgesic agent
CPT/HCPCS: 36415; 71046; 71046-26; 80053; 83880; 84443; 84484; 85025; 85379; 93005; 99283; 99285-25

== ENCOUNTER 2020-01-09 14:16 | Emergency (ER) | payer OTHER ==
[2020-01-09 14:33] VITALS: BP 140/93; PULSE 83
--- NOTE | 2020-01-09 15:27 | CR ---
Left ankle: 4 views left ankle were obtained. Comparison: Previous left ankle study of 09/26/16. Plate and screws are seen within the diaphysis of the tibia and fibula. Old healed fractures are noted. Ankle mortise is symmetric. Bony structures are slightly osteopenic. No acute fracture or other abnormality is appreciated. Impression: 1. Old healed fractures with orthopedic hardware. 2. Continuing osteopenia 3. Left ankle is study is otherwise unremarkable. Diagnostic code #2 This report was dictated in MDT
--- NOTE | 2020-01-09 16:03 | EDM.PDOC ---
ED HPI GENERAL MEDICAL PROBLEM - General Chief Complaint: Lower Extremity Injury/Pain Stated Complaint: LT LEG INJURY Time Seen by Provider: 01/09/20 14:17 Source of Information: Reports: Patient History Limitations: Reports: No Limitations - History of Present Illness INITIAL COMMENTS - FREE TEXT/NARRATIVE: Patient is a 44-year-old female who presents to the ER with complaints of left ankle pain. States 2 days ago she missed a step and stepped down hard on her left heel. She did not roll her ankle. She has been having increased pain and swelling since that time. She does have a history of fracture to that ankle with plates in place. She has been able to ambulate on the extremity, however it is painful. Left Lower Leg Pain Score (Numeric/FACES): 7 - Related Data Allergies Allergy/AdvReac Type Severity Reaction Status Date / Time Latex, Natural Rubber Allergy Rash Verified 01/09/20 14:33 Penicillins Allergy Airway Verified 01/09/20 14:33 Tightness hydromorphone [From Dilaudid] AdvReac Vomiting Verified 01/09/20 14:33 Home Meds: Home Meds Levothyroxine 137 mcg PO ACBREAKFAST 06/04/17 [History] Estradiol [Estrace] 1 mg PO DAILY 10/15/18 [History] Metoclopramide HCl [Reglan] 10 mg PO Q6H PRN #30 tablet 08/19/19 [Rx] hydroCHLOROthiazide [Hydrochlorothiazide] 1 cap PO DAILY 01/09/20 [History] Past Medical History HEENT History: Reports: Impaired Vision, Other (See Below) Other HEENT History: glasses, dental issues. Cardiovascular History: Reports: Hypertension Respiratory History: Reports: None Gastrointestinal History: Reports: Chronic Diarrhea Genitourinary History: Reports: None ESCORT BLIND History: Reports: Other ESCORT BLIND History: hyst. 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 History: Reports: Other (See Below) Other 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 History: left leg reconstructive surgery Neurological History: Reports: Migraines Psychiatric History: Reports: Anxiety Endocrine/Metabolic History: Reports: Hyperthyroidism, Other (See Below) Other Endocrine/Metabolic History: 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 problems Hematologic History: Reports: Blood Transfusion(s) Immunologic History: Reports: None Oncologic (Cancer) History: Reports: Cervix Dermatologic History: Reports: None - Infectious Disease History Infectious Disease History: Reports: Chicken Pox - Past Surgical History Female Surgical History: Reports: Section, Hysterectomy, Salpingo- Oophorectomy Other Female Surgeries/Procedures: radical hyst for 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;. uterus removed, tubes removed, lymph nodes removed, and top of vaginal removed Endocrine Surgical History: Reports: Thyroidectomy Other Oncologic Surgeries/Procedures: [facility] 07/23/2018 Social & Family History - Family History Family Medical History: Noncontributory - Tobacco Use Smoking Status *Q: Former Smoker Used Tobacco, but Quit: Yes Month/Year Tobacco Last Used: 2017 - Caffeine Use Caffeine Use: Reports: Coffee, Soda, Tea Other Caffeine Use: soda occassionally - Recreational Drug Use Recreational Drug Use: No - Living Situation & Occupation Living situation: Reports: Occupation: Employed Review of Systems - Review of Systems Review Of Systems: Comprehensive ROS is negative, except as noted in HPI. ED EXAM, GENERAL - Physical Exam Exam: See Below Exam Limited By: No Limitations General Appearance: Alert, WD/WN, No Apparent Distress Respiratory/Chest: No Respiratory Distress, Lungs Clear, Normal Breath Sounds, No Accessory Muscle Use, Chest Non-Tender Cardiovascular: Normal Peripheral Pulses, Regular Rate, Rhythm, No Edema, No Gallop, No JVD, No Murmur, No Rub Extremities: Other (1+ edema and slight redness to the left ankle. Full range of motion, however it is painful.) Neurological: Alert, Oriented, CN II-XII Intact, Normal Cognition, Normal Gait, Normal Reflexes, No Motor/Sensory Deficits Psychiatric: Normal Affect, Normal Mood Skin Exam: Warm, Dry, Intact, Normal Color, No Rash Course - Vital Signs Last Recorded V/S: Last Vital Signs Temp 97.5 F 01/09/20 14:24 Pulse 83 01/09/20 14:24 Resp 18 01/09/20 14:24 BP 140/93 H 01/09/20 14:24 Pulse Ox 99 01/09/20 14:24 - Re-Assessments/Exams Free Text/Narrative Re-Assessment/Exam: 01/09/20 16:00 X-ray of the left ankle shows no acute abnormalities. Hardware does appear intact per radiologist read. Kedar wrap applied. Recommend ice and elevation over the next week. If she continues to have pain after a week, she may follow- up with Dr. Russell. Departure - Departure Time of Disposition: 16:01 Disposition: Home, Self-Care 01 Condition: Fair Clinical Impression: Left ankle sprain Qualifiers: Encounter type: initial encounter Involved ligament of ankle: unspecified ligament Qualified Code(s): S93.402A - Sprain of unspecified ligament of left ankle, initial encounter - Discharge Information *PRESCRIPTION DRUG MONITORING PROGRAM REVIEWED*: No *COPY OF PRESCRIPTION DRUG MONITORING REPORT IN PATIENT [place]: No Instructions: Ankle Sprain, [id number] Referrals: Erika Xiong PA-C [Primary Care Provider] - Forms: ED Department Discharge, ED Return to Work/School Form Additional Instructions: You were seen in the emergency department today for pain and swelling to your left ankle after miss stepping a couple days ago. X-rays were completed and showed no acute abnormalities. Recommend that you wear the Kedar wrap as needed for comfort, ice, and elevate while at rest. A note has been provided for light duty for you for work. If you continue to have pain after 1 week, I would recommend that you follow-up with Dr. [facility] Sepsis Event Note - Evaluation Sepsis Screening Result: No Definite Risk - Focused Exam Vital Signs: Vital Signs Temp Pulse Resp BP Pulse Ox 01/09/20 14:24 97.5 F 83 18 140/93 H 99 Date Exam was Performed: 01/09/20 Time Exam was Performed: 15:59
== END 2020-01-09 16:14 | disposition home or self-care (01) ==
LOC: JD.ED 14:16
DX: S93.402A Sprain of unspecified ligament of left ankle, initial encounter (principal); I10 Essential (primary) hypertension; Z91.040 Latex allergy status; Z88.0 Allergy status to penicillin; Z88.5 Allergy status to narcotic agent; E05.90 Thyrotoxicosis, unspecified without thyrotoxic crisis or storm; Z79.899 Other long term (current) drug therapy; Z87.891 Personal history of nicotine dependence; X50.9XXA Other and unspecified overexertion or strenuous movements or postures, initial encounter
CPT/HCPCS: 73610-26-LT; 73610-LT; 99282; 99283

== ENCOUNTER 2022-02-19 11:24 | Emergency (ER) | payer MEDICAID, OTHER ==
[2022-02-19 11:40] VITALS: BP 140/96; PULSE 84
== END 2022-02-19 13:55 | disposition home or self-care (01) ==
LOC: JD.ED 11:24
DX: S80.01XA Contusion of right knee, initial encounter (principal); I10 Essential (primary) hypertension; E05.90 Thyrotoxicosis, unspecified without thyrotoxic crisis or storm; Z88.0 Allergy status to penicillin; Z91.040 Latex allergy status; Z88.5 Allergy status to narcotic agent; Z79.899 Other long term (current) drug therapy; W54.1XXA Struck by dog, initial encounter
CPT/HCPCS: 73562-26-RT; 73562-RT; 99283-25

== ENCOUNTER 2023-08-28 15:10 | Emergency (ER) | payer MEDICAID ==
[2023-08-28] MEDS ORDERED: Ketorolac 30 MG/ML SDV IM ONE (18:12)
[2023-08-28 18:21] VITALS: BP 152/73; PULSE 75
== END 2023-08-28 18:20 | disposition home or self-care (01) ==
LOC: JD.ED 15:10
DX: R22.42 Localized swelling, mass and lump, left lower limb (principal); I10 Essential (primary) hypertension; F17.210 Nicotine dependence, cigarettes, uncomplicated; E05.90 Thyrotoxicosis, unspecified without thyrotoxic crisis or storm; Z90.710 Acquired absence of both cervix and uterus; Z79.899 Other long term (current) drug therapy; Z91.040 Latex allergy status; Z88.0 Allergy status to penicillin; Z88.5 Allergy status to narcotic agent
CPT/HCPCS: 73610; 93971; 96372; 99284; J1885; 99283

== ENCOUNTER 2023-09-10 15:30 | Emergency (ER) | payer MEDICAID ==
[2023-09-10 16:08] VITALS: BP 162/85; PULSE 83
== END 2023-09-10 17:30 | disposition left against medical advice (07) ==
LOC: JD.ED 15:30
DX: Z53.21 Procedure and treatment not carried out due to patient leaving prior to being seen by health care provider (principal)
CPT/HCPCS: 73610-26-LT; 73610-LT

== ENCOUNTER 2024-03-09 14:06 | Emergency (ER) | payer MEDICAID ==
[2024-03-09 14:20] VITALS: BP 167/104; PULSE 88
[2024-03-09] MEDS: Ketorolac 30 MG/ML SDV IM ONE (16:22)
== END 2024-03-09 16:24 | disposition home or self-care (01) ==
LOC: JD.ED 14:06
DX: M62.838 Other muscle spasm (principal); M25.512 Pain in left shoulder; I10 Essential (primary) hypertension; F17.210 Nicotine dependence, cigarettes, uncomplicated; Z79.899 Other long term (current) drug therapy; Z91.040 Latex allergy status; Z88.0 Allergy status to penicillin; Z88.6 Allergy status to analgesic agent
CPT/HCPCS: 96372; 99283; J1885

== ENCOUNTER 2024-12-10 14:17 | Emergency (ER) | payer SELFPAY ==
[2024-12-10] MEDS ORDERED: Sodium Chloride 0.9% 10 ML Syringe FLUSH PRN (15:07)
[2024-12-10 16:03] LABS: BASOPHILS PERCENT AUTO 0.5 % (0.0-1.0); EOSINOPHILS ABSOLUTE AUTO 0.1 K/mm3 (0.0-0.4); EOSINOPHILS PERCENT AUTO 1.1 % (0.0-6.0); HEMATOCRIT 39.3 % (37.0-47.0); HEMOGLOBIN 13.4 gm/dl (12.0-16.0); IMMATURE GRAN ABSOLUTE AUTO 0.02 K/mm3 (0.00-0.05); IMMATURE GRAN PERCENT AUTO 0.2 % (0.0-0.4); LYMPHOCYTES ABSOLUTE AUTO 2.2 K/mm3 (1.0-4.8); LYMPHOCYTES PERCENT AUTO 25.1 % (24.0-44.0); MEAN CORPUSCULAR HEMOGLOBIN 32.7 pg (28.0-32.0); MEAN CORPUSCULAR HGB CONC 34.1 g/dl (32.0-36.0); MEAN CORPUSCULAR VOLUME 95.9 fl (83.0-99.0); MEAN PLATELET VOLUME 9.2 fl (9.4-12.3); MONOCYTES ABSOLUTE AUTO 0.5 K/mm3 (0.0-0.8); MONOCYTES PERCENT AUTO 5.6 % (0.0-8.0); NEUTROPHILS PERCENT AUTO 67.5 % (41.0-71.0); PLATELET COUNT,PLT 229 K/mm3 (150-400); WHITE BLOOD CELL COUNT,WBC 8.85 K/mm3 (3.9-11.3)
[2024-12-10] MEDS: Haloperidol Lactate 5 MG/ML SDV IVPUSH ONE (16:16)
[2024-12-10] MEDS: diphenhydrAMINE 50 MG/ML SDV IVPUSH ONE (16:16)
[2024-12-10] MEDS: Sodium Chloride 0.9% 1,000 ML IV ONE (16:16)
[2024-12-10 16:30] LABS: A/G RATIO 1.2 (1-2); ALBUMIN 3.5 g/dl (3.4-5.0); ANION GAP 12.6 (5-15); BILIRUBIN TOTAL 0.6 mg/dL (0.2-1.0); BUN/CREATININE RATIO 17.1 (14-18); CALCIUM 8.9 mg/dL (8.5-10.1); CREATININE 0.7 mg/dL (0.55-1.02); EST CRCL DRUG DOSING (CG) 100.48 mL/min; POTASSIUM,K 3.6 mEq/L (3.5-5.1); PROTEIN TOTAL,TP 6.4 g/dl (6.4-8.2)
[2024-12-10 19:26] VITALS: BP 163/96; PULSE 57
== END 2024-12-10 17:20 | disposition home or self-care (01) ==
LOC: JD.ED 14:17
DX: R51.9 Headache, unspecified (principal); M54.2 Cervicalgia; I10 Essential (primary) hypertension; E03.9 Hypothyroidism, unspecified; F17.210 Nicotine dependence, cigarettes, uncomplicated; Z79.899 Other long term (current) drug therapy; Z88.0 Allergy status to penicillin; Z91.040 Latex allergy status; Z88.5 Allergy status to narcotic agent
CPT/HCPCS: 36415; 70450; 72125; 80053; 84703; 85025; 96361; 96374; 96375; 99284; J1200; J1630; J7030; 99283

== ENCOUNTER 2025-04-06 12:30 | Emergency (ER) | payer SELFPAY ==
[2025-04-06] MEDS: Ondansetron 4 MG Tab.DIS PO ONE (13:01)
[2025-04-06 16:34] VITALS: BP 154/100; PULSE 56
== END 2025-04-06 13:30 | disposition home or self-care (01) ==
LOC: JD.ED 12:30
DX: H81.10 Benign paroxysmal vertigo, unspecified ear (principal); I10 Essential (primary) hypertension; E03.9 Hypothyroidism, unspecified; Z91.040 Latex allergy status; Z88.0 Allergy status to penicillin; Z79.890 Hormone replacement therapy; Z79.899 Other long term (current) drug therapy; Z90.710 Acquired absence of both cervix and uterus
CPT/HCPCS: 99283; A9270

== ENCOUNTER 2025-09-04 12:23 | Emergency (ER) | payer MEDICAID ==
[2025-09-04 17:08] VITALS: BP 140/109; PULSE 92
== END 2025-09-04 14:38 | disposition home or self-care (01) ==
LOC: JD.ED 12:23
DX: S62.316A Displaced fracture of base of fifth metacarpal bone, right hand, initial encounter for closed fracture (principal); I10 Essential (primary) hypertension; E03.9 Hypothyroidism, unspecified; Z90.710 Acquired absence of both cervix and uterus; Z88.0 Allergy status to penicillin; Z88.5 Allergy status to narcotic agent; Z91.040 Latex allergy status; Z79.890 Hormone replacement therapy; Z79.899 Other long term (current) drug therapy; W01.0XXA Fall on same level from slipping, tripping and stumbling without subsequent striking against object, initial encounter
CPT/HCPCS: 73130-26-RT; 73130-RT; 99283